=== PATIENT | female | born 1960 | race African-American/Black ===

== ENCOUNTER 2023-02-27 21:16 | Inpatient (IN) | payer MEDICARE, SELFPAY ==
[2023-02-27 21:36] VITALS: BP 122/60; PULSE 74; PULSE 75; RESP 16; O2SAT 100; O2SAT 98; BMI 22.5
[2023-02-27 21:40] VITALS: BP 126/71
[2023-02-27 22:00] VITALS: PULSE 80; O2SAT 100
--- NOTE | 2023-02-27 22:06 | ED.ALCOHOL ---
HPI - Alcohol General Chief Complaint: Psychiatric Symptoms Stated Complaint: ETOH USE,SYNCOPE PER EMS Time Seen by Provider: 02/27/23 22:05 Source: patient, family and RN notes reviewed Mode of arrival: EMS Limitations: no limitations History of Present Illness HPI narrative: Patient history of bipolar depression and schizophrenia been more depressed lately been drinking heavy specially for last 2 days not eating much prior to arrival patient was feeling weak and while sitting stopped responding and was drooling from her angle of the mouth, blood pressure checked 3 times at home was 78/60, 500 cc fluid was given by EMS and blood pressure improved to 126/71 patient does not remember passing out episode no seizure no head injury no chest pain no palpitation patient denies any suicidal ideation no overdose on medication Related Data Allergies Allergy/AdvReac Type Severity Reaction Status Date / Time No Known Allergies Allergy Verified 02/27/23 21:41 Review of Systems Review of Systems: Yes all other systems are reviewed and are negative PMFSH Past Medical History Medical History (Updated 02/28/23 @ 03:12 by Soto Moe MD) Schizophrenia Bipolar 1 disorder Depression Social History Social History Alcohol intake: current Alcohol intake frequency: 3 or more drinks per day Alcohol type: hard liquor Smoked in Last 30 Days: No Use of substances other than those prescribed or required for medical reasons: No Advance Directives: No Advance Directives Information Provided: No Physical Exam ED Vital Signs: Vital Signs - 24 hr 02/27/23 21:36 02/27/23 21:40 02/27/23 22:00 Temperature Pulse Rate 74 Respiratory Rate 16 Blood Pressure 126/71 Pulse Oximetry 100 100 Oxygen Delivery Method Room Air Room Air 02/28/23 01:32 02/28/23 06:12 Temperature 98.8 F 98.9 F Pulse Rate 67 76 Respiratory Rate 19 16 Blood Pressure 117/75 140/90 H Pulse Oximetry 97 97 Oxygen Delivery Method Room Air Room Air BMI result Body Mass Index 22.5 Appearance: Alert. Oriented X3. No acute distress. Eyes: PERRLA, No Nystagmus ENT: Pharynx normal. Oral Mucosa moist Neck: Normal inspection. Neck supple. CVS: Normal heart rate and rhythm. Pulses normal. Respiratory: No respiratory distress. Equal air entry bilateral, no wheezing/rales/rhonchi Abdomen: Soft and nontender. Bowel sounds are present, no mass palpable, no CVA tenderness Skin: Skin warm and dry. Normal skin color. Normal skin turgor. Extremities: No lower extremity edema. No calf tenderness Neuro: Oriented X 3. No motor deficit. No sensory deficit.No cerebellar signs , cranial nerves II-XII intact Medical Decision Making Medical Decision Making MDM Narrative: Patient depression with alcohol use with near-syncope episode a transient hypertension no EKG changes no delta troponin change no chest pain on arrival patient feels increasingly depressed moved from [place] to [place] does not have any provider here does not take any medication for depression at this time Lab Data [facility] Lab Attestation statement: I reviewed the patient's lab results. 02/27/23 22:47 02/27/23 22:47 Labs: Lab Results 02/27/23 02/28/23 02/28/23 Range/Units 22:47 01:36 02:11 WBC 7.0 (4.8-10.8) X10*3/uL RBC 4.51 (4.20-5.50) X10*6/uL Hgb 13.3 (12.0-16.0) g/dl Hct 39.9 (37.0-47.0) % MCV 88.5 (80.0-98.0) fL MCH 29.5 (27.0-33.0) pg MCHC 33.3 (31.0-35.0) g/dl RDW 15.8 (11.0-16.0) % Plt Count 168 (160-400) X10*3/uL MPV 10.3 (9.4-12.3) fL Immature Gran % (Auto) 0.1 (0.0-0.4) % Neut % (Auto) 73.4 H (45-73) % Lymph % (Auto) 20.7 (20-40) % Ramsey % (Auto) 5.4 (2-11) % Eos % (Auto) 0.0 (0-4) % Baso % (Auto) 0.4 (0-2) % Lymph # (Auto) 1.5 (1.2-4.9) X10*3/uL Ramsey # (Auto) 0.4 (0.1-1.2) X10*3/uL Eos # (Auto) 0.0 (0.0-0.4) X10*3/uL Baso # (Auto) 0.0 (0.0-0.2) X10*3/uL Abs Immat Gran (auto) 0.01 (0.00-0.03) X10*3/uL Absolute Neuts (auto) 5.2 (2.0-8.3) x10*3/uL Absolute Nucleated RBC 0.000 (0.0-0.012) X10*3/uL Nucleated RBC % (auto) 0.0 (0.0-0.2) /100WBC PT 11.5 (11.1-13.3) SEC INR 0.9 (0.9-1.1) Sodium 140 (135-145) mmol/L Potassium 3.3 (3.3-5.1) mmol/L Chloride 104 (96-108) mmol/L Carbon Dioxide 21 L (22-29) mmol/L Anion Gap 18 (12-20) BUN 22 H (9-16) mg/dL Creatinine 2.07 H (0.5-1.4) mg/dL Estim Creat Clear Calc 31.0 Estimated GFR 24 Random Glucose 98 (60-115) mg/dL Calcium 8.8 (8.4-10.2) mg/dL Magnesium 2.1 (1.6-2.6) mg/dL Total Bilirubin 0.3 (0.0-1.0) mg/dL AST 36 H (5-31) U/L ALT 15 (0-31) U/L Alkaline Phosphatase 74 (39-117) U/L Troponin I High Sens 3.4 < 2.7 (<3.5-17.0) ng/L Total Protein 8.5 H (6.5-8.0) g/dL Albumin 4.0 (3.5-5.0) g/dL Urine Opiates Screen Not Detected (Not Detect) Urine Fentanyl Screen Not Detected (Not Detect) Ur Barbiturates Screen Not Detected (Not Detect) Ur Phencyclidine Scrn Not Detected (Not Detect) Ur Amphetamines Screen Not Detected (Not Detect) U Benzodiazepines Scrn Not Detected (Not Detect) Urine Cocaine Screen Not Detected (Not Detect) U Marijuana (THC) Screen POSITIVE H (Not Detect) Ethyl Alcohol 241 mg/dL Independent Interpretation I performed an independent interpretation of an: EKG Interpretation: Normal sinus rhythm heart rate 66 beats per min poor progression of R wave in anterior lead no acute ST T wave changes no acute ischemia Medications Administered Discontinued Medications Generic Name Dose Route Start Last Admin Trade Name Freq PRN Reason Stop Dose Admin Sodium Chloride 1,000 mls @ 999 mls/hr 02/27/23 22:31 02/28/23 01:03 Ns IV 02/27/23 23:31 Infused .Q1H1M ONE Infusion Lorazepam 2 mg 02/28/23 06:13 02/28/23 06:30 Lorazepam 1 Mg Tablet PO 2 mg RQ4H WHILE AWAKE PRN Administration Alcohol Withdrawal Discharge Plan Discharge Clinical Impression: Vasovagal syncope, Alcohol dependence, Depression Patient Disposition: Still a Patient Interventions: Twiggs-Suicide Risk Severity Scale Last Done: 02/28/23 06:36
--- NOTE | 2023-02-27 22:36 | ECG_ITS ---
Test Reason : SYNCOPE Blood Pressure : / mmHG Vent. Rate : 066 BPM Atrial Rate : 066 BPM P-R Int : 202 ms QRS Dur : 096 ms QT Int : 480 ms P-R-T Axes : 118 213 202 degrees QTc Int : 503 ms Suspect limb lead reversal, interpretation assumes no reversal Normal sinus rhythm Anterolateral infarct , age undetermined T wave abnormality, consider inferior ischemia Abnormal ECG No previous ECGs available Repeat EKG with proper arm lead positioning Referred By: Soto Moe Electronically Signed By:RICHY HIGGINS MD
--- NOTE | 2023-02-27 22:36 | PC.NURSE ---
pt refusing changing into hospital gown.
[2023-02-27 22:53] LABS: MANUAL DIFF FLAG NO
[2023-02-27 22:55] LABS: Basophils Percent Auto 0.4 % (0-2); Hematocrit 39.9 % (37.0-47.0); Hemoglobin 13.3 g/dl (12.0-16.0); Imm Gran Abs Auto 0.01 X10*3/uL (0.00-0.03); Imm Gran Pct Auto 0.1 % (0.0-0.4); Lymphocytes Absolute Auto 1.5 X10*3/uL (1.2-4.9); Lymphocytes Percent Auto 20.7 % (20-40); Mean Corpuscular HGB Conc 33.3 g/dl (31.0-35.0); Mean Corpuscular Hemoglobin 29.5 pg (27.0-33.0); Mean Corpuscular Volume 88.5 fL (80.0-98.0); Mean Platelet Volume 10.3 fL (9.4-12.3); Monocytes Absolute Auto 0.4 X10*3/uL (0.1-1.2); Monocytes Percent Auto 5.4 % (2-11); Neutrophils Absolute Auto 5.2 x10*3/uL (2.0-8.3); Neutrophils Percent Auto 73.4 % (45-73); Platelet Count 168 X10*3/uL (160-400); Red Blood Count 4.51 X10*6/uL (4.20-5.50); Red Cell Distribution Width 15.8 % (11.0-16.0)
[2023-02-27] MEDS: 0.9 % Sodium Chloride 1,000 ML 999 ML IV (23:01)
--- NOTE | 2023-02-27 23:01 | PC.NURSE ---
pt now calm/cooperative. in agreement with plan of care. pt changed into hospital gown. labs obtained. nsr on monitor. ivf infusing. pt speaking full clear centences; axox3. awaiting lab results. call jacobs within reach..
[2023-02-27 23:03] LABS: INTERNATIONAL NORM RATIO 0.9 (0.9-1.1); Prothrombin Time 11.5 SEC (11.1-13.3)
[2023-02-27 23:06] LABS: Ethanol 241 mg/dL
[2023-02-27 23:09] LABS: Alanine Aminotransferase 15 U/L (0-31); Alkaline Phosphatase 74 U/L (39-117); Anion Gap 18 (12-20); Aspartate Amino Transferase 36 U/L (5-31); Bilirubin Total 0.3 mg/dL (0.0-1.0); Blood Urea Nitrogen 22 mg/dL (9-16); Calcium 8.8 mg/dL (8.4-10.2); Carbon Dioxide 21 mmol/L (22-29); Chloride 104 mmol/L (96-108); Estimated Glomerular Filt Rate 24; Glucose Random 98 mg/dL (60-115); Magnesium 2.1 mg/dL (1.6-2.6); Potassium 3.3 mmol/L (3.3-5.1); Sodium 140 mmol/L (135-145); Total Protein 8.5 g/dL (6.5-8.0)
[2023-02-27 23:16] LABS: Troponin-I High Sensitivity 3.4 ng/L (<3.5-17.0)
--- NOTE | 2023-02-28 | ECG_ITS ---
Test Reason : REPEAT EKG Blood Pressure : / mmHG Vent. Rate : 059 BPM Atrial Rate : 059 BPM P-R Int : 172 ms QRS Dur : 082 ms QT Int : 450 ms P-R-T Axes : 012 -35 011 degrees QTc Int : 445 ms Sinus bradycardia Left axis deviation Anteroseptal infarct (cited on or before 27-FEB-2023) Abnormal ECG When compared with ECG of 27-FEB-2023 23:07, Serial changes of Anteroseptal infarct Present Referred By: Soto Moe Electronically Signed By:RICHY HIGGINS MD
[2023-02-28 01:32] VITALS: BP 117/75; PULSE 67; RESP 19; TEMP 37.1; O2SAT 97
--- NOTE | 2023-02-28 01:45 | PC.NURSE ---
repeat trop drawn and sent to lab. per pts conversation with Dr. Moe; care team consult ordered. awaiting medical clearance to private branch exchange repairer pt and move to pod.
[2023-02-28 02:23] LABS: Amphetamine Screen Urine Not Detected (Not Detect); Barbiturates, Urine Not Detected (Not Detect); Benzodiazepines Screen Urine Not Detected (Not Detect); Cannabinoid Screen Urine POSITIVE (Not Detect); Cocaine Screen Urine Not Detected (Not Detect); Fentanyl, urine Not Detected (Not Detect); Opiate Screen Urine Not Detected (Not Detect); Phencyclidine Screen Urine Not Detected (Not Detect)
[2023-02-28 03:05] LABS: Troponin-I High Sensitivity < 2.7 ng/L (<3.5-17.0)
--- NOTE | 2023-02-28 03:56 | MHC.EDTECH ---
PT belongings locked in POD Locker #3
--- NOTE | 2023-02-28 03:59 | PC.NURSE ---
pt changed to pod gown/clothes. belongings secured in locker. report given to pod rn. awaiting transport to pod.
[2023-02-28 06:12] VITALS: BP 140/90; PULSE 76; RESP 16; TEMP 37.2; O2SAT 97
[2023-02-28] MEDS: LORazepam 1 MG TABLET 2 MG PO ×3 (06:30→23:40)
[2023-02-28 09:15] LABS: Anion Gap 12 (12-20); Blood Urea Nitrogen 24 mg/dL (9-16); Calcium 8.5 mg/dL (8.4-10.2); Carbon Dioxide 24 mmol/L (22-29); Chloride 108 mmol/L (96-108); Estimated Glomerular Filt Rate 37; Glucose Random 101 mg/dL (60-115); Sodium 140 mmol/L (135-145)
--- NOTE | 2023-02-28 12:24 | PC.NURSE ---
CIWA of 5. only symptom of alcohol use is anxiety at this time. Ativan 2mg given, she had good effect earlier.
[2023-02-28 16:44] LABS: COVID-19 Test Negative (Negative); IDNOW Serial# 6674DD1D
--- NOTE | 2023-02-28 17:29 | PC.NURSE ---
Nurse to nurse report given to
--- NOTE | 2023-02-28 18:35 | PC.NURSE ---
Asuncion Loera called this commercial real estate underwriter informing that Freddie Damon from [facility] wanted a repeat EKG due to her previous EKG. order done
--- NOTE | 2023-02-28 19:08 | PC.NURSE ---
patient appears to remain at rest at present in room, resting comfortably patient appears in no distress.
[2023-02-28 23:35] VITALS: BP 190/117; PULSE 83; RESP 18; TEMP 36.6; O2SAT 95
[2023-02-28 23:36] VITALS: BP 181/107; RESP 18
[2023-03-01] VITALS (8 sets, daily range): BP systolic 121–198; BP diastolic 65–108; PULSE 63–72; RESP 15–18; TEMP 36.4–36.7; O2SAT 97–99
--- NOTE | 2023-03-01 01:00 | PC.NURSE ---
Addendum entered by Zayda Almaguer RN 03/01/23 06:43: Pt rechecked after taking Clonidine 0.1mg after one hour and her bp was 162/90. Original Note: Pt arrived on unit from ED POD and vitals were taken at 2335, BP was elevated at 190/117, retook on opposite arm and reading was 181/107. house calls nurse JS notified and ordered Ativan 2mg (as pt on CIWA scale also) and recheck bp in one hour. Upon rechecking bp was 193/104. Took manual recheck and it was 182/100. house calls nurse JS notified and ordered Clonidine 0.1 q2h prn sbp >160. In one hour if recheck was still elevated, directed to contact hospitalist for consult. Will continue to monitor and amend.
[2023-03-01] MEDS: cloNIDine HCL 0.1 MG TABLET PO ×2 (01:21→07:54)
[2023-03-01] MEDS: LORazepam 1 MG TABLET PO ×2 (03:05→21:19)
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
[2023-03-01 07:56] LABS: Estimated Average Glucose 97 mg/dL
[2023-03-01] MEDS: LORazepam 1 MG TABLET 2 MG PO (07:58)
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
[2023-03-01 08:24] LABS: Cholesterol 175 mg/dL (<200); HDL Cholesterol 62 mg/dL (>40); LDL Cholesterol Calculated 81 mg/dL (<100); Triglycerides 163 mg/dL (<150)
[2023-03-01 08:38] LABS: Folate 8.8 ng/mL (> or = 4.0); Free T4 (Free Thyroxine) 0.71 ng/dL (0.71-1.85); Thyroid Stimulating Hormone 3.95 uIU/mL (0.32-4.0)
--- NOTE | 2023-03-01 11:34 | P.CONHOSP_ITS ---
History of Present Illness Data of Consult Service Date: 03/01/23 Primary Care Provider: Unknown Physician HPI Reason for consult: Elevated BP Patient is a 62-year-old female with a PMH significant for HTN, alcohol use disorder, depression, bipolar disorder, and schizophrenia who was admitted to and very psych unit increased depression and substance use. Hospitalist consult for elevated blood pressure. Patient's BP at home was initially soft at 78/60, she was given 500 mL IVF by EMS prior to arrival at the ED. BP in the hospital has been mostly elevated since yesterday, as high as 198/108 this morning. [facility] Medical History (Updated 02/28/23 @ 03:12 by Soto Moe MD) Schizophrenia Bipolar 1 disorder Depression Social History Household Members: Other Household Members Other:: Daughter in law and her boyfriend Housing: Apartment Do you presently have visiting nurse or other home services: No Alcohol intake: current Alcohol intake frequency: 3 or more drinks per day Alcohol type: hard liquor Patient Tobacco Use Status: Former Tobacco user Tobacco use type: Cigarette Smoked in Last 30 Days: No Patient Interested in Nicotine Replacement: No Patient Given Instructions on How to Stop Smoking: Yes Date Education Initiated: 02/28/23 Second Hand Smoke Exposure: No Use of substances other than those prescribed or required for medical reasons: Yes Substance Use Type: Marijuana Substance Use Frequency: Occasionally Last Used Substance: Just Prior to Admission Currently Displaying Signs/Symptoms of Drug Intoxication Withdrawal: No Any prior treatment program specific to substance use: No Have you been hit, kicked, punched, or otherwise hurt by someone within the past year? If so, by whom?: No Do you feel safe in your current relationship?: No Current Relationship Is there a partner from a previous relationship who is making you feel unsafe now?: No Are you made to feel afraid or neglected: No Advance Directives: No Advance Directives Information Provided: No Healthcare Proxy: No Guardian: No Do you have thoughts of harming others: None Do you have a plan to hurt others: No Plan Recently lost weight without trying: No Nutrition Risks: No Nutritional Risk Patient : No : No Poor oral hygiene: No Meds Allergies Allergy/AdvReac Type Severity Reaction Status Date / Time No Known Allergies Allergy Verified 02/27/23 21:41 Active Medications: Current Medications Acetaminophen (Acetaminophen 325 Mg Tablet) 650 mg PO Q6H PRN PRN Reason: Headache/Pain Mild Scale (1-3) Al Hydroxide/Mg Hydroxide (Magnesium Hydrox/Alum Hydrox 30 Ml Oral.Susp) 30 ml PO Q6H PRN PRN Reason: Heartburn/Nausea Clonidine HCl (Clonidine Hcl 0.1 Mg Tablet) 0.1 mg PO Q2H PRN; Protocol PRN Reason: SBP > 160 Last Admin: 03/01/23 07:54 Dose: 0.1 mg Hydroxyzine HCl (Hydroxyzine Hcl 25 Mg Tablet) 25 mg PO Q6H PRN PRN Reason: Anxiety Lorazepam (Lorazepam 1 Mg Tablet) 1 mg PO Q2H PRN PRN Reason: CIWA 8-11 Last Admin: 03/01/23 03:05 Dose: 1 mg Lorazepam (Lorazepam 1 Mg Tablet) 2 mg PO Q2H PRN PRN Reason: CIWA 12-15 Last Admin: 03/01/23 07:58 Dose: 2 mg Lorazepam (Lorazepam 1 Mg Tablet) 3 mg PO Q2H PRN PRN Reason: CIWA > 15; and call Magnesium Hydroxide (Milk Of Magnesia 30 Ml Oral.Susp) 30 ml PO DAILY PRN PRN Reason: Constipation Nicotine Polacrilex (Nicotine Polacrilex 2 Mg Gum) 4 mg BUCCAL Q2H PRN PRN Reason: Nicotine Cravings Ondansetron HCl (Ondansetron Odt 4 Mg Tab.Rapdis) 4 mg TRANSLINGU Q6H PRN PRN Reason: Nausea Trazodone HCl (Trazodone Hcl 50 Mg Tablet) 50 mg PO BEDTIME MRX1 PRN PRN Reason: Insomnia Home Medications Medication Instructions Recorded Confirmed Last Taken Type fluoxetine 20 mg PO DAILY 03/01/23 03/01/23 Unknown History lisinopril 20 mg tablet 20 mg PO BID 03/01/23 03/01/23 Unknown History trazodone 100 mg tablet 100 mg PO BEDTIME 03/01/23 03/01/23 Unknown History Physical Exam 2 Vital Signs and Narrative: Vital Signs: Last Vital Signs Temp 97.6 F 03/01/23 07:40 Pulse 69 03/01/23 09:56 Resp 16 03/01/23 07:40 BP 144/94 H 03/01/23 09:56 Pulse Ox 97 03/01/23 07:40 O2 Del Method Room Air 03/01/23 07:40 BMI result Body Mass Index 22.5 Results Labs 02/27/23 22:47 02/28/23 08:53 Labs: Laboratory Results - last 24 hr 02/28/23 03/01/23 16:25 07:09 Estimat Average Glucose 97 Hemoglobin A1c % 5.0 Triglycerides 163 H Cholesterol 175 LDL Cholesterol, Calc 81 HDL Cholesterol 62 Folate 8.8 TSH 3.95 Free T4 0.71 COVID-19 ([facility]) Negative COVID-19 Clin Com See Note
--- NOTE | 2023-03-01 13:03 | P.EN_ITS ---
Event Note Date of Service: 03/01/23 Event Note: Patient is a 62-year-old female with a PMH significant for HTN, alcohol use disorder, depression, bipolar disorder, and schizophrenia who was admitted to and very psych unit increased depression and substance use. Hospitalist consult for elevated blood pressure. Patient's BP at home was initially soft at 78/60, she was given 500 mL IVF by EMS prior to arrival at the ED. BP in the hospital has been mostly elevated since yesterday, as high as 198/108 this morning. Patient's blood pressure has since come down with a reading of 144/94 at 10:00 today and is now normotensive with a BP of 121/65 at 11:46. Patient has also been receiving Ativan 2 mg q2hr p.r.n. for acute alcohol withdrawal. Patient recently moved from [place] to [place] and has yet to establish medical care in the area. Apparently carries a diagnosis of HTN it is prescribed lisinopril 20 mg p.o. b.i.d.. However, spoke to pharmacy and they noted pt had 2 prescriptions dated 01/25 and 02/08 at a [facility] in [facility], but there are no records of patient ever filling those prescriptions. Elevated BP likely secondary to acute alcohol withdrawal. Continue Ativan withdrawal protocol. Given that patient's BP is now normotensive and there are no records of her ever filling lisinopril prescriptions, will hold off on antihypertensives at the moment. Will continue to monitor BP and start her on a low-dose of lisinopril if warranted. Time Spent With Patient Time: Total time managing care of this patient today ____ minutes.
[2023-03-01] MEDS: FLUoxetine HCl 20 MG CAPSULE PO (15:44)
[2023-03-01] MEDS: Loratadine 10 MG TABLET PO (21:20)
[2023-03-01] MEDS: traZODone HCL 100 MG TABLET PO (21:20)
[2023-03-02 07:45] VITALS: BP 160/98; PULSE 71; RESP 16; TEMP 36.6; O2SAT 97
[2023-03-02] MEDS: FLUoxetine HCl 20 MG CAPSULE 40 MG PO (08:22)
[2023-03-02] MEDS: Loratadine 10 MG TABLET PO (08:23)
[2023-03-02 09:17] LABS: HIV AB/AG Reactive (Nonreactive)
[2023-03-02 12:03] VITALS: BP 141/82; PULSE 70
[2023-03-02] MEDS: lisinopriL 10 MG TABLET PO (12:05)
[2023-03-02] MEDS: LORazepam 1 MG TABLET PO ×3 (14:18→20:47)
--- NOTE | 2023-03-02 14:19 | P.PNPSI_ITS ---
Subjective Subjective Date of Service: 03/02/23 Reason For Visit: si/ alcohol Interim History: calm, cooperative. discussed ativan taper and adding lisinopril back in for BP. no complaints or requests. happy to hear about discharge planned for later this week. per staff, not attending groups. CIWA 13, 3, 3 yesterday. CIWA 9 overnight. pleasant, withdrawn. some diarrhea. CIWA 3 today. slept about 8 hours. Mental Status Exam Mental Status Exam Narrative: calm, cooperative. no PMA/PMR. speech soft, somewhat sparse and slowed. decreased prosody, nml latency. thoughts linear and logical. affect constricted, normo-intense, non-labile. mood not assessed. no SI/SIBI/HI/AVH expressed. does endorse some illusions. Diagnostics Vital Signs (24Hr): Vital Signs - 24 hr 03/01/23 18:00 03/01/23 19:50 03/02/23 07:45 Temperature 97.9 F 97.8 F Pulse Rate 63 70 71 Respiratory Rate 15 16 Blood Pressure 141/76 H 185/100 H 160/98 H Pulse Oximetry 99 97 Oxygen Delivery Method Room Air Room Air 03/02/23 12:03 Temperature Pulse Rate 70 Respiratory Rate Blood Pressure 141/82 H Pulse Oximetry Oxygen Delivery Method BMI result Body Mass Index 22.5 Labs 02/27/23 22:47 02/28/23 08:53 Labs: Laboratory Results - last 48 hr 02/28/23 03/01/23 03/01/23 16:25 07:09 15:13 Estimat Average Glucose 97 Hemoglobin A1c % 5.0 Triglycerides 163 H Cholesterol 175 LDL Cholesterol, Calc 81 HDL Cholesterol 62 Folate 8.8 TSH 3.95 Free T4 0.71 COVID-19 ([facility]) Negative COVID-19 Clin Com See Note HIV 1&2 Ab/P24 Ag 4thGn Reactive H Medications Medications Current Medications Acetaminophen (Acetaminophen 325 Mg Tablet) 650 mg PO Q6H PRN PRN Reason: Headache/Pain Mild Scale (1-3) Al Hydroxide/Mg Hydroxide (Magnesium Hydrox/Alum Hydrox 30 Ml Oral.Susp) 30 ml PO Q6H PRN PRN Reason: Heartburn/Nausea Clonidine HCl (Clonidine Hcl 0.1 Mg Tablet) 0.1 mg PO Q2H PRN; Protocol PRN Reason: SBP > 160 Last Admin: 03/01/23 07:54 Dose: 0.1 mg Fluoxetine HCl (Fluoxetine Hcl 20 Mg Capsule) 40 mg PO DAILY [facility] Last Admin: 03/02/23 08:22 Dose: 40 mg Hydroxyzine HCl (Hydroxyzine Hcl 25 Mg Tablet) 25 mg PO Q6H PRN PRN Reason: Anxiety Lisinopril (Lisinopril 10 Mg Tablet) 10 mg PO DAILY [facility]; Protocol Last Admin: 03/02/23 12:05 Dose: 10 mg Loratadine (Loratadine 10 Mg Tablet) 10 mg PO DAILY [facility] Last Admin: 03/02/23 08:23 Dose: 10 mg Lorazepam (Lorazepam 1 Mg Tablet) 1 mg PO TID [facility] Stop: 03/02/23 21:01 Last Admin: 03/02/23 14:18 Dose: 1 mg Lorazepam (Lorazepam 0.5 Mg Tablet) 0.5 mg PO QID [facility] Stop: 03/03/23 21:01 Lorazepam (Lorazepam 0.5 Mg Tablet) 0.5 mg PO BID [facility] Stop: 03/05/23 09:01 Magnesium Hydroxide (Milk Of Magnesia 30 Ml Oral.Susp) 30 ml PO DAILY PRN PRN Reason: Constipation Nicotine Polacrilex (Nicotine Polacrilex 2 Mg Gum) 4 mg BUCCAL Q2H PRN PRN Reason: Nicotine Cravings Ondansetron HCl (Ondansetron Odt 4 Mg Tab.Rapdis) 4 mg TRANSLINGU Q6H PRN PRN Reason: Nausea Trazodone HCl (Trazodone Hcl 50 Mg Tablet) 50 mg PO BEDTIME MRX1 PRN PRN Reason: Insomnia Trazodone HCl (Trazodone Hcl 100 Mg Tablet) 100 mg PO BEDTIME [facility] Last Admin: 03/01/23 21:20 Dose: 100 mg Allergies Allergies Allergy/AdvReac Type Severity Reaction Status Date / Time No Known Allergies Allergy Verified 02/27/23 21:41 Assessment & Plan Assessment & Plan (1) Alcohol dependence: Status: Acute Code(s): F10.20 - Alcohol dependence, uncomplicated (2) Depression: Status: Acute Code(s): F32.A - Depression, unspecified Plan 1) HTN - per fabrice, observe for now and restart lisinopril 5 if indicated moving forward. recent HTN likely related to alcohol withdrawal. treat accordingly. 03/02 lisinopril 10 restarted due to continued elevated BP. 2) renal impairment - trend, keep in mind in making Rx decisions 3) mood - restarted prozac and trazodone 03/01 -03/02. no information presented supportive of bipolar or psychotic Dx. eval for PTSD. 4) HIV - screen positive 03/01. pt reports having been told in the 90s she was HIV +, never treated. ID consult placed for eval/Tx. Reason for continued inpatient stay Substantial Risk for: inability to function and rapid decompensation Time Spent With Patient Time: Total time managing care of this patient today _25___ minutes.
[2023-03-02 19:50] VITALS: BP 165/88; PULSE 76; RESP 16; TEMP 36.3; O2SAT 97
[2023-03-02] MEDS: traZODone HCL 100 MG TABLET PO (20:47)
[2023-03-02 22:59] LABS: COVID-19 Test Negative (Negative); IDNOW Serial# 08D9AD1C
[2023-03-03 08:58] VITALS: BP 145/90; PULSE 75; RESP 16; TEMP 36.6; O2SAT 96
[2023-03-03] MEDS: FLUoxetine HCl 20 MG CAPSULE 40 MG PO (09:00)
[2023-03-03] MEDS: Loratadine 10 MG TABLET PO (09:01)
[2023-03-03] MEDS: lisinopriL 10 MG TABLET PO ×2 (09:01→21:15)
[2023-03-03] MEDS: LORazepam 0.5 MG TABLET PO ×4 (09:01→21:15)
[2023-03-03] MEDS: Acetaminophen 325 MG TABLET 650 MG PO (09:06)
--- NOTE | 2023-03-03 09:43 | P.PNPSI_ITS ---
Subjective Subjective Date of Service: 03/03/23 Reason For Visit: si/ alcohol Subjective Notes: Conditional Voluntary Interim History: Reviewed with . Patient reports having some depression but low anxiety ; pt stated, I feel like the meds are helping . Pt denies SI/HI/VH/AH. attending groups. Medication Compliance: Yes Attending Groups: Yes Review of Systems Constitutional: Reports as per HPI Eyes: Reports as per HPI Reports as per HPI Cardiovascular: Reports as per HPI Respiratory: Reports as per HPI Gastrointestinal: Reports as per HPI Genitourinary: Reports as per HPI Musculoskeletal: Reports as per HPI Skin/Breast: Reports as per HPI Reports as per HPI Psychiatric: Reports as per HPI Endocrine: Reports as per HPI Hematologic/Lymphatic: Reports as per HPI Allergic/Immunologic: Reports as per HPI Mental Status Exam Mental Status Exam Narrative: Pt is alert and oriented; behavior is cooperative and calm; dressed in casual attire; mood is described as some depression ; eye contact appropriate; Speech is normal rate, volume and prosody and not pressured; thought process is organized; Thought content is on tx; otherwise pertinent to relevant topics and without any delusional content, paranoid ideations or grandiosity; denies SI/HI/VH/AH. Diagnostics Vital Signs (24Hr): Vital Signs - 24 hr 03/02/23 12:03 03/02/23 19:50 03/03/23 08:58 Temperature 97.3 F 97.9 F Pulse Rate 70 76 75 Respiratory Rate 16 16 Blood Pressure 141/82 H 165/88 H 145/90 H Pulse Oximetry 97 96 Oxygen Delivery Method Room Air Room Air BMI result Body Mass Index 22.5 Labs 02/27/23 22:47 02/28/23 08:53 Labs: Laboratory Results - last 48 hr 03/01/23 03/02/23 15:13 22:03 COVID-19 ([facility]) Negative COVID-19 Clin Com See Note HIV 1&2 Ab/P24 Ag 4thGn Reactive H Medications Medications Current Medications Acetaminophen (Acetaminophen 325 Mg Tablet) 650 mg PO Q6H PRN PRN Reason: Headache/Pain Mild Scale (1-3) Last Admin: 03/03/23 09:06 Dose: 650 mg Al Hydroxide/Mg Hydroxide (Magnesium Hydrox/Alum Hydrox 30 Ml Oral.Susp) 30 ml PO Q6H PRN PRN Reason: Heartburn/Nausea Clonidine HCl (Clonidine Hcl 0.1 Mg Tablet) 0.1 mg PO Q2H PRN; Protocol PRN Reason: SBP > 160 Last Admin: 03/01/23 07:54 Dose: 0.1 mg Fluoxetine HCl (Fluoxetine Hcl 20 Mg Capsule) 40 mg PO DAILY [facility] Last Admin: 03/03/23 09:00 Dose: 40 mg Hydroxyzine HCl (Hydroxyzine Hcl 25 Mg Tablet) 25 mg PO Q6H PRN PRN Reason: Anxiety Lisinopril (Lisinopril 10 Mg Tablet) 10 mg PO DAILY [facility]; Protocol Last Admin: 03/03/23 09:01 Dose: 10 mg Loratadine (Loratadine 10 Mg Tablet) 10 mg PO DAILY [facility] Last Admin: 03/03/23 09:01 Dose: 10 mg Lorazepam (Lorazepam 0.5 Mg Tablet) 0.5 mg PO QID [facility] Stop: 03/03/23 21:01 Last Admin: 03/03/23 09:01 Dose: 0.5 mg Lorazepam (Lorazepam 0.5 Mg Tablet) 0.5 mg PO BID [facility] Stop: 03/05/23 09:01 Magnesium Hydroxide (Milk Of Magnesia 30 Ml Oral.Susp) 30 ml PO DAILY PRN PRN Reason: Constipation Nicotine Polacrilex (Nicotine Polacrilex 2 Mg Gum) 4 mg BUCCAL Q2H PRN PRN Reason: Nicotine Cravings Ondansetron HCl (Ondansetron Odt 4 Mg Tab.Rapdis) 4 mg TRANSLINGU Q6H PRN PRN Reason: Nausea Trazodone HCl (Trazodone Hcl 50 Mg Tablet) 50 mg PO BEDTIME MRX1 PRN PRN Reason: Insomnia Trazodone HCl (Trazodone Hcl 100 Mg Tablet) 100 mg PO BEDTIME [facility] Last Admin: 03/02/23 20:47 Dose: 100 mg Allergies Allergies Allergy/AdvReac Type Severity Reaction Status Date / Time No Known Allergies Allergy Verified 02/27/23 21:41 Assessment & Plan Assessment & Plan (1) Alcohol dependence: Status: Acute Code(s): F10.20 - Alcohol dependence, uncomplicated (2) Depression: Status: Acute Code(s): F32.A - Depression, unspecified Plan 1) HTN - per fabrice, observe for now and restart lisinopril 5 if indicated moving forward. recent HTN likely related to alcohol withdrawal. treat accordingly. 03/02 lisinopril 10 restarted due to continued elevated BP. 2) renal impairment - trend, keep in mind in making Rx decisions 3) mood - restarted prozac and trazodone 03/01 -03/02. no information presented supportive of bipolar or psychotic Dx. eval for PTSD. 4) HIV - screen positive 03/01. pt reports having been told in the 90s she was HIV +, never treated. ID consult placed for eval/Tx. 03/03: Patient reports having some depression but low anxiety ; pt stated, I feel like the meds are helping . Pt denies SI/HI/VH/AH. attending groups. Continue current tx plan. Patient educated on: diagnosis, medication risk/benefits and therapeutic strategies Informed Consent: understands Reason for continued inpatient stay Substantial Risk for: med/psych decompensation Time Spent With Patient Time: Total time managing care of this patient today _20___ minutes.
[2023-03-03 14:24] LABS: Vitamin B12 364 pg/mL (200-900)
[2023-03-03 21:00] VITALS: BP 158/84; PULSE 69; RESP 16; TEMP 36.5; O2SAT 96
[2023-03-03] MEDS: traZODone HCL 100 MG TABLET PO (21:15)
--- NOTE | 2023-03-03 23:23 | P.CNID_ITS ---
History of Present Illness Data of Consult Service Date: 03/03/23 Requesting physician: Juan Diego Damon Primary Care Provider: Unknown Physician HPI Reason for consult: HIV screening positive She presents to hospital with excess alcohol intake as well as inability to care for self because of alcohol use and depressed mood. She reports being diagnosed with HIV in and taking medication for two months in [place]. She thinks it may have been [facility] but [phone] and they have record of patient taking Trazodone only and no HIV medication on record in their system. I called [facility] and they have no record either and there is no record of her in [facility] or [facility] system . Pt reports no HIV related illnesses and doesnt know CD4 count or viral load. She reports distant syphilis history. She says she drinks Rinku Josr Zavala Kirstie 80 proof catherine neat as drink of choice and doesnt quantify but says drinks daily. She says she quit drugs and cigarettes and doesnt elaborate further. She intends to live in [place] now and has moved from [place]. Her screening HIV test is positive here. Review of Systems 2 Review of Systems: Yes all other systems are reviewed and are negative PENDING SALE TO [facility] Past Medical History Medical History (Updated 03/03/23 @ 23:42 by Tequila Toledo MD) HIV antibody positive Schizophrenia Bipolar 1 disorder Depression Family History Family history: reviewed and not pertinent Social History Social History Household Members: Other Household Members Other:: Daughter in law and her boyfriend Housing: Apartment Do you presently have visiting nurse or other home services: No Alcohol intake: current Alcohol intake frequency: 3 or more drinks per day Alcohol type: hard liquor Patient Tobacco Use Status: Former Tobacco user Tobacco use type: Cigarette Smoked in Last 30 Days: No Patient Interested in Nicotine Replacement: No Patient Given Instructions on How to Stop Smoking: Yes Date Education Initiated: 02/28/23 Second Hand Smoke Exposure: No Use of substances other than those prescribed or required for medical reasons: Yes Substance Use Type: Marijuana Substance Use Frequency: Occasionally Last Used Substance: Just Prior to Admission Currently Displaying Signs/Symptoms of Drug Intoxication Withdrawal: No Any prior treatment program specific to substance use: No Have you been hit, kicked, punched, or otherwise hurt by someone within the past year? If so, by whom?: No Do you feel safe in your current relationship?: No Current Relationship Is there a partner from a previous relationship who is making you feel unsafe now?: No Are you made to feel afraid or neglected: No Advance Directives: No Advance Directives Information Provided: No Healthcare Proxy: No Guardian: No Do you have thoughts of harming others: None Do you have a plan to hurt others: No Plan Recently lost weight without trying: No Nutrition Risks: No Nutritional Risk Patient : No : No Poor oral hygiene: No service: No Sexual orientation: Straight/Heterosexual Meds Allergies Allergy/AdvReac Type Severity Reaction Status Date / Time No Known Allergies Allergy Verified 02/27/23 21:41 Active Medications: Current Medications Acetaminophen (Acetaminophen 325 Mg Tablet) 650 mg PO Q6H PRN PRN Reason: Headache/Pain Mild Scale (1-3) Last Admin: 03/03/23 09:06 Dose: 650 mg Al Hydroxide/Mg Hydroxide (Magnesium Hydrox/Alum Hydrox 30 Ml Oral.Susp) 30 ml PO Q6H PRN PRN Reason: Heartburn/Nausea Clonidine HCl (Clonidine Hcl 0.1 Mg Tablet) 0.1 mg PO Q2H PRN; Protocol PRN Reason: SBP > 160 Last Admin: 03/01/23 07:54 Dose: 0.1 mg Fluoxetine HCl (Fluoxetine Hcl 20 Mg Capsule) 40 mg PO DAILY [facility] Last Admin: 03/03/23 09:00 Dose: 40 mg Hydroxyzine HCl (Hydroxyzine Hcl 25 Mg Tablet) 25 mg PO Q6H PRN PRN Reason: Anxiety Lisinopril (Lisinopril 10 Mg Tablet) 10 mg PO BID [facility]; Protocol Last Admin: 03/03/23 21:15 Dose: 10 mg Loratadine (Loratadine 10 Mg Tablet) 10 mg PO DAILY [facility] Last Admin: 03/03/23 09:01 Dose: 10 mg Lorazepam (Lorazepam 0.5 Mg Tablet) 0.5 mg PO BID [facility] Stop: 03/05/23 09:01 Magnesium Hydroxide (Milk Of Magnesia 30 Ml Oral.Susp) 30 ml PO DAILY PRN PRN Reason: Constipation Nicotine Polacrilex (Nicotine Polacrilex 2 Mg Gum) 4 mg BUCCAL Q2H PRN PRN Reason: Nicotine Cravings Ondansetron HCl (Ondansetron Odt 4 Mg Tab.Rapdis) 4 mg TRANSLINGU Q6H PRN PRN Reason: Nausea Trazodone HCl (Trazodone Hcl 50 Mg Tablet) 50 mg PO BEDTIME MRX1 PRN PRN Reason: Insomnia Trazodone HCl (Trazodone Hcl 100 Mg Tablet) 100 mg PO BEDTIME [facility] Last Admin: 03/03/23 21:15 Dose: 100 mg Home Medications Medication Instructions Recorded Confirmed Last Taken Type fluoxetine 20 mg PO DAILY 03/01/23 03/01/23 Unknown History lisinopril 20 mg tablet 20 mg PO BID 03/01/23 03/01/23 Unknown History trazodone 100 mg tablet 100 mg PO BEDTIME 03/01/23 03/01/23 Unknown History Physical Exam 2 Vital Signs: Vital Signs: Last Vital Signs Temp 97.7 F 03/03/23 21:00 Pulse 69 03/03/23 21:00 Resp 16 03/03/23 21:00 BP 158/84 H 03/03/23 21:00 Pulse Ox 96 03/03/23 21:00 O2 Del Method Room Air 03/03/23 21:00 BMI result Body Mass Index 22.5 Const: General: cooperative HEENT: Other: geographic tongue ?dryness Head: Yes normal to inspection Face and sinus: Yes normal facial exam Mouth: Normal oral and palatal mucosa present Teeth and gingiva: dentition normal Eyes: General: appearance normal, both eyes and all related structures P upils: Equal, round and reactive pupils present Resp: Effort & Inspection: normal respiratory effort Cardio: Rate: regular rate Rhythm: regular rhythm GI: Palpation (GI): Soft to palpation and nontender : General: Yes no CVA tenderness Back/Spine/Pelvis: Back: no CVA tenderness Skin: General skin exam: no rashes or lesions noted Neuro: General: moves all extremities Cranial nerves: Yes Equal, round and reactive pupils present Extrem: General: Yes normal to inspection Psych: Appearance: grossly normal Results Labs 02/27/23 22:47 02/28/23 08:53 Assessment and Plan (1) HIV antibody positive: Status: Acute Confirmatory testing is pending. I cant find record of medications or results of HIV CD4 count or viral load from [place] (2) Depression: Status: Acute (3) Alcohol dependence: Status: Acute (4) Vasovagal syncope: Status: Acute Plan Check CD4 count and viral load. Consider resistance screening. Obtain records from [place]. She should follow with [facility] on discharge [facility] program and call Татьяна Tsai RN at [phone] to set up care per her request
[2023-03-04 07:00] VITALS: BMI 23.3
[2023-03-04 08:00] VITALS: BP 158/82; PULSE 65; RESP 18; TEMP 36.6; O2SAT 97
[2023-03-04] MEDS: FLUoxetine HCl 20 MG CAPSULE 40 MG PO (08:23)
[2023-03-04] MEDS: lisinopriL 10 MG TABLET PO ×2 (08:24→22:10)
[2023-03-04] MEDS: Loratadine 10 MG TABLET PO (08:24)
[2023-03-04] MEDS: LORazepam 0.5 MG TABLET PO ×2 (08:24→22:10)
--- NOTE | 2023-03-04 09:22 | P.PNPSI_ITS ---
Subjective Subjective Date of Service: 03/04/23 Reason For Visit: si/ alcohol Subjective Notes: Conditional Voluntary Interim History: Reviewed with . Guarded. Pt stated, my depression is down. I'm always concerned about something. I'm worried about how long I will be here . Pt denies SI/HI/VH/AH. keeping to self. Medication Compliance: Yes Side effects from medications: No Review of Systems Constitutional: Reports as per HPI Eyes: Reports as per HPI Reports as per HPI Cardiovascular: Reports as per HPI Respiratory: Reports as per HPI Gastrointestinal: Reports as per HPI Genitourinary: Reports as per HPI Musculoskeletal: Reports as per HPI Skin/Breast: Reports as per HPI Reports as per HPI Psychiatric: Reports as per HPI Endocrine: Reports as per HPI Hematologic/Lymphatic: Reports as per HPI Allergic/Immunologic: Reports as per HPI Mental Status Exam Mental Status Exam Narrative: Pt is alert and oriented; behavior is cooperative and calm; dressed in casual attire; mood is described as some depression ; eye contact appropriate; Speech is normal rate, volume and prosody and not pressured; thought process is organized; Thought content is on tx; otherwise pertinent to relevant topics and without any delusional content, paranoid ideations or grandiosity; denies SI/HI/VH/AH. Diagnostics Vital Signs (24Hr): Vital Signs - 24 hr 03/03/23 21:00 03/04/23 08:00 Temperature 97.7 F 97.8 F Pulse Rate 69 65 Respiratory Rate 16 18 Blood Pressure 158/84 H 158/82 H Pulse Oximetry 96 97 Oxygen Delivery Method Room Air Room Air BMI result Body Mass Index 22.5 Labs 02/27/23 22:47 02/28/23 08:53 Labs: Laboratory Results - last 48 hr 03/01/23 03/02/23 07:09 22:03 Vitamin B12 364 COVID-19 ([facility]) Negative COVID-19 Clin Com See Note Medications Medications Current Medications Acetaminophen (Acetaminophen 325 Mg Tablet) 650 mg PO Q6H PRN PRN Reason: Headache/Pain Mild Scale (1-3) Last Admin: 03/03/23 09:06 Dose: 650 mg Al Hydroxide/Mg Hydroxide (Magnesium Hydrox/Alum Hydrox 30 Ml Oral.Susp) 30 ml PO Q6H PRN PRN Reason: Heartburn/Nausea Clonidine HCl (Clonidine Hcl 0.1 Mg Tablet) 0.1 mg PO Q2H PRN; Protocol PRN Reason: SBP > 160 Last Admin: 03/01/23 07:54 Dose: 0.1 mg Fluoxetine HCl (Fluoxetine Hcl 20 Mg Capsule) 40 mg PO DAILY [facility] Last Admin: 03/04/23 08:23 Dose: 40 mg Hydroxyzine HCl (Hydroxyzine Hcl 25 Mg Tablet) 25 mg PO Q6H PRN PRN Reason: Anxiety Lisinopril (Lisinopril 10 Mg Tablet) 10 mg PO BID [facility]; Protocol Last Admin: 03/04/23 08:24 Dose: 10 mg Loratadine (Loratadine 10 Mg Tablet) 10 mg PO DAILY [facility] Last Admin: 03/04/23 08:24 Dose: 10 mg Lorazepam (Lorazepam 0.5 Mg Tablet) 0.5 mg PO BID [facility] Stop: 03/05/23 09:01 Last Admin: 03/04/23 08:24 Dose: 0.5 mg Magnesium Hydroxide (Milk Of Magnesia 30 Ml Oral.Susp) 30 ml PO DAILY PRN PRN Reason: Constipation Nicotine Polacrilex (Nicotine Polacrilex 2 Mg Gum) 4 mg BUCCAL Q2H PRN PRN Reason: Nicotine Cravings Ondansetron HCl (Ondansetron Odt 4 Mg Tab.Rapdis) 4 mg TRANSLINGU Q6H PRN PRN Reason: Nausea Trazodone HCl (Trazodone Hcl 50 Mg Tablet) 50 mg PO BEDTIME MRX1 PRN PRN Reason: Insomnia Trazodone HCl (Trazodone Hcl 100 Mg Tablet) 100 mg PO BEDTIME [facility] Last Admin: 03/03/23 21:15 Dose: 100 mg Allergies Allergies Allergy/AdvReac Type Severity Reaction Status Date / Time No Known Allergies Allergy Verified 02/27/23 21:41 Assessment & Plan Assessment & Plan (1) Depression: Status: Acute Code(s): F32.A - Depression, unspecified (2) HIV antibody positive: Status: Acute Code(s): Z21 - Asymptomatic human immunodeficiency virus [HIV] infection status Assessment and Plan: Confirmatory testing is pending. I cant find record of medications or results of HIV CD4 count or viral load from [place] (3) Alcohol dependence: Status: Acute Code(s): F10.20 - Alcohol dependence, uncomplicated (4) Vasovagal syncope: Status: Acute Code(s): R55 - Syncope and collapse Plan 1) HTN - per fabrice, observe for now and restart lisinopril 5 if indicated moving forward. recent HTN likely related to alcohol withdrawal. treat accordingly. 03/02 lisinopril 10 restarted due to continued elevated BP. 2) renal impairment - trend, keep in mind in making Rx decisions 3) mood - restarted prozac and trazodone 03/01 -03/02. no information presented supportive of bipolar or psychotic Dx. eval for PTSD. 4) HIV - screen positive 03/01. pt reports having been told in the she was HIV +, never treated. ID consult placed for eval/Tx. 03/03: Patient reports having some depression but low anxiety ; pt stated, I feel like the meds are helping . Pt denies SI/HI/VH/AH. attending groups. Continue current tx plan. Infection disease consult: Check CD4 count and viral load. Consider resistance screening. Obtain records from [place]. She should follow with [facility] on discharge [facility] program and call Татьяна Tsai RN at [phone] to set up care per her request. 03/04: Guarded. Pt stated, my depression is down. I'm always concerned about something. I'm worried about how long I will be here . Pt denies SI/HI/VH/AH. keeping to self. Continue current tx plan. Patient educated on: diagnosis, medication risk/benefits and therapeutic strategies Informed Consent: understands Reason for continued inpatient stay Substantial Risk for: med/psych decompensation Time Spent With Patient Time: Total time managing care of this patient today _20___ minutes.
[2023-03-04 12:38] VITALS: BMI 23.3
[2023-03-04 22:02] VITALS: BP 170/94; PULSE 68; RESP 16; TEMP 36.6; O2SAT 98
[2023-03-04] MEDS: traZODone HCL 100 MG TABLET PO (22:15)
[2023-03-05 07:20] VITALS: BP 128/83; PULSE 69; RESP 16; TEMP 36.7; O2SAT 98
[2023-03-05 08:23] LABS: Syphilis Screen Nonreactive (Nonreactive)
[2023-03-05] MEDS: FLUoxetine HCl 20 MG CAPSULE 40 MG PO (08:47)
[2023-03-05] MEDS: Loratadine 10 MG TABLET PO (08:47)
[2023-03-05] MEDS: LORazepam 0.5 MG TABLET PO (08:47)
[2023-03-05] MEDS: lisinopriL 10 MG TABLET PO ×2 (08:48→20:54)
--- NOTE | 2023-03-05 09:11 | P.PNPSI_ITS ---
Subjective Subjective Date of Service: 03/05/23 Reason For Visit: si/ alcohol Subjective Notes: Conditional Voluntary Interim History: Reviewed with . Guarded. keeping to self. Pt stated, I'm feeling tired. I got a lot on my mind and about my situation. I'm not having any craving to drink . denies SI/HI/VH/AH. Medication Compliance: Yes Review of Systems Constitutional: Reports as per HPI Eyes: Reports as per HPI Reports as per HPI Cardiovascular: Reports as per HPI Respiratory: Reports as per HPI Gastrointestinal: Reports as per HPI Genitourinary: Reports as per HPI Musculoskeletal: Reports as per HPI Skin/Breast: Reports as per HPI Reports as per HPI Psychiatric: Reports as per HPI Endocrine: Reports as per HPI Hematologic/Lymphatic: Reports as per HPI Allergic/Immunologic: Reports as per HPI Mental Status Exam Mental Status Exam Narrative: Pt is alert and oriented; behavior is cooperative and calm; dressed in casual attire; mood is described as tired ; eye contact appropriate; Speech is normal rate, volume and prosody and not pressured; thought process is organized; Thought content is on tx; otherwise pertinent to relevant topics and without any delusional content, paranoid ideations or grandiosity; denies SI/HI/VH/AH. Diagnostics Vital Signs (24Hr): Vital Signs - 24 hr 03/04/23 22:02 03/05/23 07:20 Temperature 97.8 F 98.1 F Pulse Rate 68 69 Respiratory Rate 16 16 Blood Pressure 170/94 H 128/83 Pulse Oximetry 98 98 Oxygen Delivery Method Room Air Room Air BMI result Body Mass Index 23.3 Labs 02/27/23 22:47 02/28/23 08:53 Labs: Laboratory Results - last 48 hr 03/01/23 03/04/23 07:09 17:26 Vitamin B12 364 T.pallidum Ab (EIA) Nonreactive Medications Medications Current Medications Acetaminophen (Acetaminophen 325 Mg Tablet) 650 mg PO Q6H PRN PRN Reason: Headache/Pain Mild Scale (1-3) Last Admin: 03/03/23 09:06 Dose: 650 mg Al Hydroxide/Mg Hydroxide (Magnesium Hydrox/Alum Hydrox 30 Ml Oral.Susp) 30 ml PO Q6H PRN PRN Reason: Heartburn/Nausea Clonidine HCl (Clonidine Hcl 0.1 Mg Tablet) 0.1 mg PO Q2H PRN; Protocol PRN Reason: SBP > 160 Last Admin: 03/01/23 07:54 Dose: 0.1 mg Fluoxetine HCl (Fluoxetine Hcl 20 Mg Capsule) 40 mg PO DAILY [facility] Last Admin: 03/05/23 08:47 Dose: 40 mg Hydroxyzine HCl (Hydroxyzine Hcl 25 Mg Tablet) 25 mg PO Q6H PRN PRN Reason: Anxiety Lisinopril (Lisinopril 10 Mg Tablet) 10 mg PO BID [facility]; Protocol Last Admin: 03/05/23 08:48 Dose: 10 mg Loratadine (Loratadine 10 Mg Tablet) 10 mg PO DAILY [facility] Last Admin: 03/05/23 08:47 Dose: 10 mg Magnesium Hydroxide (Milk Of Magnesia 30 Ml Oral.Susp) 30 ml PO DAILY PRN PRN Reason: Constipation Nicotine Polacrilex (Nicotine Polacrilex 2 Mg Gum) 4 mg BUCCAL Q2H PRN PRN Reason: Nicotine Cravings Ondansetron HCl (Ondansetron Odt 4 Mg Tab.Rapdis) 4 mg TRANSLINGU Q6H PRN PRN Reason: Nausea Trazodone HCl (Trazodone Hcl 50 Mg Tablet) 50 mg PO BEDTIME MRX1 PRN PRN Reason: Insomnia Trazodone HCl (Trazodone Hcl 100 Mg Tablet) 100 mg PO BEDTIME [facility] Last Admin: 03/04/23 22:15 Dose: 100 mg Allergies Allergies Allergy/AdvReac Type Severity Reaction Status Date / Time No Known Allergies Allergy Verified 02/27/23 21:41 Assessment & Plan Assessment & Plan (1) Depression: Status: Acute Code(s): F32.A - Depression, unspecified (2) HIV antibody positive: Status: Acute Code(s): Z21 - Asymptomatic human immunodeficiency virus [HIV] infection status Assessment and Plan: Confirmatory testing is pending. I cant find record of medications or results of HIV CD4 count or viral load from [place] (3) Alcohol dependence: Status: Acute Code(s): F10.20 - Alcohol dependence, uncomplicated (4) Vasovagal syncope: Status: Acute Code(s): R55 - Syncope and collapse Plan 1) HTN - per fabrice, observe for now and restart lisinopril 5 if indicated moving forward. recent HTN likely related to alcohol withdrawal. treat accordingly. 03/02 lisinopril 10 restarted due to continued elevated BP. 2) renal impairment - trend, keep in mind in making Rx decisions 3) mood - restarted prozac and trazodone 03/01 -03/02. no information presented supportive of bipolar or psychotic Dx. eval for PTSD. 4) HIV - screen positive 03/01. pt reports having been told in the she was HIV +, never treated. ID consult placed for eval/Tx. 03/03: Patient reports having some depression but low anxiety ; pt stated, I feel like the meds are helping . Pt denies SI/HI/VH/AH. attending groups. Continue current tx plan. Infection disease consult: Check CD4 count and viral load. Consider resistance screening. Obtain records from [place]. She should follow with [facility] on discharge [facility] program and call Татьяна Tsai RN at [phone] to set up care per her request. 03/04: Guarded. Pt stated, my depression is down. I'm always concerned about something. I'm worried about how long I will be here . Pt denies SI/HI/VH/AH. keeping to self. Continue current tx plan. 03/05: keeping to self. Pt stated, I'm feeling tired. I got a lot on my mind and about my situation. I'm not having any craving to drink . denies SI/HI/VH/AH. Continue current tx plan. waiting on lab results. Patient educated on: diagnosis, medication risk/benefits and therapeutic strategies Informed Consent: understands Reason for continued inpatient stay Substantial Risk for: med/psych decompensation Time Spent With Patient Time: Total time managing care of this patient today _20___ minutes.
[2023-03-05 17:54] LABS: HIV RNA PCR Qn Copies 7410 copies/mL (NOT DETECTED); HIV RNA PCR Qn Log Copies 3.87 (NOT DETECTED)
[2023-03-05] MEDS: Acetaminophen 325 MG TABLET 650 MG PO (17:57)
[2023-03-05 20:10] VITALS: BP 154/72; PULSE 74; RESP 16; TEMP 36.7; O2SAT 97
[2023-03-05] MEDS: traZODone HCL 100 MG TABLET PO (20:54)
--- NOTE | 2023-03-06 08:02 | HO.PSYCHPN ---
Subjective Subjective Date of Service: 03/06/23 Reason For Visit: si/ alcohol Subjective Notes: Conditional Voluntary Medical Problems Affecting Mental Status: Yes (? high bp) Interim History: 62 yo with hx of alcohol dependnce and depression, having elevated bp - pt reports has had most of their lives- presented to er on admission with alcohol lvl of 240, ciwa 3 as of 03/02 and I believe protocol was dced, She was drinking catherine prior to admission- Pt reports mood ok today- wanted to know difference between fluoxetine and ativan for anxiety. Medication Compliance: Yes Side effects from medications: No Attending Groups: Yes Review of Systems Acute medical concerns: Yes blood pressure- though it might or might not be affecting her mental health Medical Review of Systems: unchanged Review of Systems: no chest pain or headache. Mental Status Exam Mental Status Exam Patient Appearance: Well Grooomed and Appropriate Patient Orientation: Person, Place, Time and Situation Level of Consciousness: Awake and Appropriate Patient Behavior: Appropriate Mood Description: Calm Affect Description: Appropriate Patient Cognition Impaired: No Ability to Follow Directions: Good Speech Pattern: Clear Hallucinations: None Delusions: Not Present Judgement: Fair Diagnostics Vital Signs (24Hr): Vital Signs - 24 hr 03/05/23 20:10 Temperature 98.0 F Pulse Rate 74 Respiratory Rate 16 Blood Pressure 154/72 H Pulse Oximetry 97 Oxygen Delivery Method Room Air BMI result Body Mass Index 23.3 Labs 02/27/23 22:47 02/28/23 08:53 Labs: Laboratory Results - last 48 hr 03/03/23 03/04/23 20:07 17:26 T.pallidum Ab (EIA) Nonreactive HIV-1 RNA copies/mL 7410 H HIV-1 RNA logcopies/mL 3.87 H Medications Medications Current Medications Acetaminophen (Acetaminophen 325 Mg Tablet) 650 mg PO Q6H PRN PRN Reason: Headache/Pain Mild Scale (1-3) Last Admin: 03/05/23 17:57 Dose: 650 mg Al Hydroxide/Mg Hydroxide (Magnesium Hydrox/Alum Hydrox 30 Ml Oral.Susp) 30 ml PO Q6H PRN PRN Reason: Heartburn/Nausea Clonidine HCl (Clonidine Hcl 0.1 Mg Tablet) 0.1 mg PO Q2H PRN; Protocol PRN Reason: SBP > 160 Last Admin: 03/01/23 07:54 Dose: 0.1 mg Fluoxetine HCl (Fluoxetine Hcl 20 Mg Capsule) 40 mg PO DAILY [facility] Last Admin: 03/05/23 08:47 Dose: 40 mg Hydroxyzine HCl (Hydroxyzine Hcl 25 Mg Tablet) 25 mg PO Q6H PRN PRN Reason: Anxiety Lisinopril (Lisinopril 10 Mg Tablet) 10 mg PO BID [facility]; Protocol Last Admin: 03/05/23 20:54 Dose: 10 mg Loratadine (Loratadine 10 Mg Tablet) 10 mg PO DAILY [facility] Last Admin: 03/05/23 08:47 Dose: 10 mg Magnesium Hydroxide (Milk Of Magnesia 30 Ml Oral.Susp) 30 ml PO DAILY PRN PRN Reason: Constipation Nicotine Polacrilex (Nicotine Polacrilex 2 Mg Gum) 4 mg BUCCAL Q2H PRN PRN Reason: Nicotine Cravings Ondansetron HCl (Ondansetron Odt 4 Mg Tab.Rapdis) 4 mg TRANSLINGU Q6H PRN PRN Reason: Nausea Trazodone HCl (Trazodone Hcl 50 Mg Tablet) 50 mg PO BEDTIME MRX1 PRN PRN Reason: Insomnia Trazodone HCl (Trazodone Hcl 100 Mg Tablet) 100 mg PO BEDTIME [facility] Last Admin: 03/05/23 20:54 Dose: 100 mg Allergies Allergies Allergy/AdvReac Type Severity Reaction Status Date / Time No Known Allergies Allergy Verified 02/27/23 21:41 Assessment & Plan Assessment & Plan (1) Depression: Status: Acute Code(s): F32.A - Depression, unspecified Assessment and Plan: 03/06 doing better with this (2) HIV antibody positive: Status: Acute Code(s): Z21 - Asymptomatic human immunodeficiency virus [HIV] infection status Assessment and Plan: Confirmatory testing is pending. I cant find record of medications or results of HIV CD4 count or viral load from [place] (3) Alcohol dependence: Status: Acute Code(s): F10.20 - Alcohol dependence, uncomplicated Assessment and Plan: ? ciwa dced but bp inc, however pulse stable.. (4) Vasovagal syncope: Status: Acute Code(s): R55 - Syncope and collapse Plan 1) HTN - per fabrice, observe for now and restart lisinopril 5 if indicated moving forward. recent HTN likely related to alcohol withdrawal. treat accordingly. 03/02 lisinopril 10 restarted due to continued elevated BP. 2) renal impairment - trend, keep in mind in making Rx decisions 3) mood - restarted prozac and trazodone 03/01 -03/02. no information presented supportive of bipolar or psychotic Dx. eval for PTSD. 4) HIV - screen positive 03/01. pt reports having been told in the 90s she was HIV +, never treated. ID consult placed for eval/Tx. 03/03: Patient reports having some depression but low anxiety ; pt stated, I feel like the meds are helping . Pt denies SI/HI/VH/AH. attending groups. Continue current tx plan. Infection disease consult: Check CD4 count and viral load. Consider resistance screening. Obtain records from [place]. She should follow with [facility] on discharge [facility] program and call Татьяна Tsai RN at [phone] to set up care per her request. 03/04: Guarded. Pt stated, my depression is down. I'm always concerned about something. I'm worried about how long I will be here . Pt denies SI/HI/VH/AH. keeping to self. Continue current tx plan. 03/05: keeping to self. Pt stated, I'm feeling tired. I got a lot on my mind and about my situation. I'm not having any craving to drink . denies SI/HI/VH/AH. Continue current tx plan. waiting on lab results. 03/06 ongoing issues with bp today requiring clonidine 2 x and I added lorazepam x1 - may need to reconsult hospitalist re stabilizing bp as lisinopril 10mg bid Patient educated on: medication risk/benefits and medical condition Informed Consent: understands Reason for continued inpatient stay Substantial Risk for: rapid decompensation and med/psych decompensation Time Spent With Patient Time: Total time managing care of this patient today ____ minutes.
[2023-03-06 08:25] VITALS: BP 177/94; PULSE 59; RESP 16; TEMP 37.1; O2SAT 96
[2023-03-06] MEDS: FLUoxetine HCl 20 MG CAPSULE 40 MG PO (08:28)
[2023-03-06] MEDS: lisinopriL 10 MG TABLET PO ×2 (08:29→20:16)
[2023-03-06] MEDS: Loratadine 10 MG TABLET PO (08:29)
[2023-03-06] MEDS: cloNIDine HCL 0.1 MG TABLET PO ×2 (08:33→22:21)
[2023-03-06 10:02] VITALS: BP 128/64; PULSE 65; RESP 18
--- NOTE | 2023-03-06 12:51 | P.EN_ITS ---
Event Note Date of Service: 03/06/23 Event Note: Blood pressures improving with lisinopril 10mg BID. BP remains elevated am. Add amlodipine 5mg at bedtime. Avoid using clonidine prn during medication adjustment to avoid hypotension while scheduled medications are being optimized. Medication placed on hold. Ple ase contact hospitalist for any questions or concerns. Will continue monitoring blood pressures until reasonably controlled. Time Spent With Patient Time: Total time managing care of this patient today ____ minutes.
[2023-03-06 20:15] VITALS: BP 180/84; PULSE 63; RESP 18; TEMP 36.7; O2SAT 98
[2023-03-06] MEDS: amLODIPine Besylate 5 MG TABLET PO ×2 (20:16→23:24)
[2023-03-06 21:25] VITALS: BP 193/95; PULSE 60; RESP 16
[2023-03-06 21:35] VITALS: BP 180/98; PULSE 59; RESP 16
[2023-03-06] MEDS: LORazepam 1 MG TABLET PO (22:21)
[2023-03-06 22:53] VITALS: BP 188/96; PULSE 63; RESP 16
--- NOTE | 2023-03-06 22:57 | PC.NURSE ---
Notified hospitalist and Shannan Bo of the continued elevation of blood pressure despite clonidine 0.1 mg PO and Ativan 1 mg PO given 20 minutes ago. BP 188/96 HR - 63
[2023-03-07 00:25] VITALS: BP 150/87; PULSE 62; RESP 14; O2SAT 95
[2023-03-07 08:25] VITALS: BP 129/78; PULSE 62; RESP 16; TEMP 36.3; O2SAT 98
[2023-03-07] MEDS: Loratadine 10 MG TABLET PO (08:28)
[2023-03-07] MEDS: Bictegrav/Emtricit/Tenofov Ala TABLET 1 TAB PO (08:29)
[2023-03-07] MEDS: lisinopriL 20 MG TABLET PO ×2 (08:29→20:09)
[2023-03-07] MEDS: FLUoxetine HCl 20 MG CAPSULE 40 MG PO (08:29)
[2023-03-07] MEDS: Acetaminophen 325 MG TABLET 650 MG PO (08:55)
--- NOTE | 2023-03-07 12:49 | P.PNPSI_ITS ---
Subjective Subjective Date of Service: 03/07/23 Reason For Visit: si/ alcohol Subjective Notes: Conditional Voluntary Interim History: 62 yo patient and this provider both relieved that patient's bp has come down. Pt feeling better on fluoxetine- denying current si, and less depressed- Medication Compliance: Yes Side effects from medications: No Attending Groups: Intermittent Review of Systems Acute medical concerns: No BP improved Mental Status Exam Mental Status Exam Patient Appearance: Well Grooomed and Appropriate Patient Orientation: Person, Place, Time and Situation Level of Consciousness: Awake and Appropriate Patient Behavior: Appropriate Mood Description: Calm Affect Description: Appropriate Patient Cognition Impaired: No Ability to Follow Directions: Good Speech Pattern: Clear Hallucinations: None Delusions: Not Present Judgement: Fair Diagnostics Vital Signs (24Hr): Vital Signs - 24 hr 03/06/23 20:15 03/06/23 21:25 03/06/23 21:35 Temperature 98.1 F Pulse Rate 63 60 59 Respiratory Rate 18 16 16 Blood Pressure 180/84 H 193/95 H 180/98 H Pulse Oximetry 98 Oxygen Delivery Method Room Air 03/06/23 22:53 03/07/23 00:25 03/07/23 08:25 Temperature 97.3 F Pulse Rate 63 62 62 Respiratory Rate 16 14 16 Blood Pressure 188/96 H 150/87 H 129/78 Pulse Oximetry 95 98 Oxygen Delivery Method Room Air Room Air BMI result Body Mass Index 23.3 Labs 02/27/23 22:47 02/28/23 08:53 Labs: Laboratory Results - last 48 hr 03/03/23 20:07 HIV-1 RNA copies/mL 7410 H HIV-1 RNA logcopies/mL 3.87 H Medications Medications Current Medications Acetaminophen (Acetaminophen 325 Mg Tablet) 650 mg PO Q6H PRN PRN Reason: Headache/Pain Mild Scale (1-3) Last Admin: 03/07/23 08:55 Dose: 650 mg Al Hydroxide/Mg Hydroxide (Magnesium Hydrox/Alum Hydrox 30 Ml Oral.Susp) 30 ml PO Q6H PRN PRN Reason: Heartburn/Nausea Amlodipine Besylate (Amlodipine Besylate 10 Mg Tablet) 10 mg PO BEDTIME [facility]; Protocol Bictegravir/Emtricitabine/Tenofovir (Bictegrav/Emtricit/Tenofov Ala Tablet) 1 tab PO DAILY [facility] Last Admin: 03/07/23 08:29 Dose: 1 tab Clonidine HCl (Clonidine Hcl 0.1 Mg Tablet) 0.1 mg PO Q2H PRN; Protocol PRN Reason: SBP > 160 Last Admin: 03/06/23 22:21 Dose: 0.1 mg Fluoxetine HCl (Fluoxetine Hcl 20 Mg Capsule) 40 mg PO DAILY [facility] Last Admin: 03/07/23 08:29 Dose: 40 mg Hydroxyzine HCl (Hydroxyzine Hcl 25 Mg Tablet) 25 mg PO Q6H PRN PRN Reason: Anxiety Lisinopril (Lisinopril 20 Mg Tablet) 20 mg PO BID [facility]; Protocol Last Admin: 03/07/23 08:29 Dose: 20 mg Loratadine (Loratadine 10 Mg Tablet) 10 mg PO DAILY [facility] Last Admin: 03/07/23 08:28 Dose: 10 mg Magnesium Hydroxide (Milk Of Magnesia 30 Ml Oral.Susp) 30 ml PO DAILY PRN PRN Reason: Constipation Nicotine Polacrilex (Nicotine Polacrilex 2 Mg Gum) 4 mg BUCCAL Q2H PRN PRN Reason: Nicotine Cravings Ondansetron HCl (Ondansetron Odt 4 Mg Tab.Rapdis) 4 mg TRANSLINGU Q6H PRN PRN Reason: Nausea Trazodone HCl (Trazodone Hcl 50 Mg Tablet) 50 mg PO BEDTIME MRX1 PRN PRN Reason: Insomnia Trazodone HCl (Trazodone Hcl 100 Mg Tablet) 100 mg PO BEDTIME [facility] Last Admin: 03/06/23 23:25 Dose: Not Given Allergies Allergies Allergy/AdvReac Type Severity Reaction Status Date / Time No Known Allergies Allergy Verified 02/27/23 21:41 Assessment & Plan Assessment & Plan (1) Depression: Status: Acute Code(s): F32.A - Depression, unspecified Assessment and Plan: 03/06 doing better with this (2) HIV antibody positive: Status: Acute Code(s): Z21 - Asymptomatic human immunodeficiency virus [HIV] infection status Assessment and Plan: Confirmatory testing is pending. I cant find record of medications or results of HIV CD4 count or viral load from [place] (3) Alcohol dependence: Status: Acute Code(s): F10.20 - Alcohol dependence, uncomplicated Assessment and Plan: ? ciwa dced but bp inc, however pulse stable.. (4) Vasovagal syncope: Status: Acute Code(s): R55 - Syncope and collapse Plan 1) HTN - per fabrice, observe for now and restart lisinopril 5 if indicated moving forward. recent HTN likely related to alcohol withdrawal. treat accordingly. 03/02 lisinopril 10 restarted due to continued elevated BP. 2) renal impairment - trend, keep in mind in making Rx decisions 3) mood - restarted prozac and trazodone 03/01 -03/02. no information presented supportive of bipolar or psychotic Dx. eval for PTSD. 4) HIV - screen positive 03/01. pt reports having been told in the she was HIV +, never treated. ID consult placed for eval/Tx. 03/03: Patient reports having some depression but low anxiety ; pt stated, I feel like the meds are helping . Pt denies SI/HI/VH/AH. attending groups. Continue current tx plan. Infection disease consult: Check CD4 count and viral load. Consider resistance screening. Obtain records from [place]. She should follow with [facility] on discharge [facility] program and call Татьяна Tsai RN at [phone] to set up care per her request. 03/04: Guarded. Pt stated, my depression is down. I'm always concerned about something. I'm worried about how long I will be here . Pt denies SI/HI/VH/AH. keeping to self. Continue current tx plan. 03/05: keeping to self. Pt stated, I'm feeling tired. I got a lot on my mind and about my situation. I'm not having any craving to drink . denies SI/HI/VH/AH. Continue current tx plan. waiting on lab results. 03/06 ongoing issues with bp today requiring clonidine 2 x and I added lorazepam x1 - may need to reconsult hospitalist re stabilizing bp as lisinopril 10mg bid 03/07 - seen by hospitalist and signed off will continue to follow if needed but bp back in range- mood improved- Patient educated on: medication risk/benefits Informed Consent: understands Reason for continued inpatient stay Substantial Risk for: rapid decompensation Time Spent With Patient Time: Total time managing care of this patient today ____ minutes.
[2023-03-07 20:00] VITALS: BP 133/73; PULSE 63; RESP 16; TEMP 36.7; O2SAT 98
[2023-03-07] MEDS: amLODIPine Besylate 10 MG TABLET PO (20:10)
[2023-03-07] MEDS: traZODone HCL 100 MG TABLET PO (23:45)
[2023-03-08 08:19] VITALS: BP 148/77; PULSE 63; RESP 18; TEMP 36.4; O2SAT 98
[2023-03-08] MEDS: FLUoxetine HCl 20 MG CAPSULE 40 MG PO (08:25)
[2023-03-08] MEDS: lisinopriL 20 MG TABLET PO ×2 (08:25→22:58)
[2023-03-08] MEDS: Bictegrav/Emtricit/Tenofov Ala TABLET 1 TAB PO (08:25)
[2023-03-08] MEDS: Loratadine 10 MG TABLET PO (08:25)
--- NOTE | 2023-03-08 11:20 | PM.EVENT ---
Event Note Date of Service: 03/08/23 Event Note: Blood pressures more controlled. Continue lisinopril 10mg BID and amlodipine 10mg at bedtime as prescribed. Please do not use clonidine as a prn measure for elevated blood pressure readings. This medication has been discontinued. Please reach out to a hospitalist. Time Spent With Patient Time: Total time managing care of this patient today ____ minutes.
--- NOTE | 2023-03-08 12:30 | P.PNPSI_ITS ---
Subjective Subjective Date of Service: 03/08/23 Reason For Visit: si/ alcohol Subjective Notes: Conditional Voluntary Interim History: 62 yo reports continuing to do better, not feeling quite ready to leave but not able to identify ongoing sys- Sleep is ok , mood improved, anxiety better- Blood pressure improved- Medication Compliance: Yes Side effects from medications: No Attending Groups: Yes Review of Systems Acute medical concerns: No Medical Review of Systems: unchanged Mental Status Exam Mental Status Exam Narrative: Sitting up in main area- social with peers- Patient Appearance: Well Grooomed and Appropriate Patient Orientation: Person, Place, Time and Situation Level of Consciousness: Awake and Alert Patient Behavior: Appropriate and Cooperative Mood Description: Calm Affect Description: Appropriate Patient Cognition Impaired: No Ability to Follow Directions: Good Speech Pattern: Clear Hallucinations: None Delusions: Not Present Thought Process: Intact and Goal Oriented Judgement: Good (though desire to stay may be based on no where to go - ) Diagnostics Vital Signs (24Hr): Vital Signs - 24 hr 03/07/23 20:00 03/08/23 08:19 Temperature 98.1 F 97.5 F Pulse Rate 63 63 Respiratory Rate 16 18 Blood Pressure 133/73 148/77 H Pulse Oximetry 98 98 Oxygen Delivery Method Room Air Room Air BMI result Body Mass Index 23.3 Labs 02/27/23 22:47 02/28/23 08:53 Medications Medications Current Medications Acetaminophen (Acetaminophen 325 Mg Tablet) 650 mg PO Q6H PRN PRN Reason: Headache/Pain Mild Scale (1-3) Last Admin: 03/07/23 08:55 Dose: 650 mg Al Hydroxide/Mg Hydroxide (Magnesium Hydrox/Alum Hydrox 30 Ml Oral.Susp) 30 ml PO Q6H PRN PRN Reason: Heartburn/Nausea Amlodipine Besylate (Amlodipine Besylate 10 Mg Tablet) 10 mg PO BEDTIME [facility]; Protocol Last Admin: 03/07/23 20:10 Dose: 10 mg Bictegravir/Emtricitabine/Tenofovir (Bictegrav/Emtricit/Tenofov Ala Tablet) 1 tab PO DAILY [facility] Last Admin: 03/08/23 08:25 Dose: 1 tab Fluoxetine HCl (Fluoxetine Hcl 20 Mg Capsule) 40 mg PO DAILY [facility] Last Admin: 03/08/23 08:25 Dose: 40 mg Hydroxyzine HCl (Hydroxyzine Hcl 25 Mg Tablet) 25 mg PO Q6H PRN PRN Reason: Anxiety Lisinopril (Lisinopril 20 Mg Tablet) 20 mg PO BID [facility]; Protocol Last Admin: 03/08/23 08:25 Dose: 20 mg Loratadine (Loratadine 10 Mg Tablet) 10 mg PO DAILY [facility] Last Admin: 03/08/23 08:25 Dose: 10 mg Magnesium Hydroxide (Milk Of Magnesia 30 Ml Oral.Susp) 30 ml PO DAILY PRN PRN Reason: Constipation Nicotine Polacrilex (Nicotine Polacrilex 2 Mg Gum) 4 mg BUCCAL Q2H PRN PRN Reason: Nicotine Cravings Ondansetron HCl (Ondansetron Odt 4 Mg Tab.Rapdis) 4 mg TRANSLINGU Q6H PRN PRN Reason: Nausea Trazodone HCl (Trazodone Hcl 50 Mg Tablet) 50 mg PO BEDTIME MRX1 PRN PRN Reason: Insomnia Trazodone HCl (Trazodone Hcl 100 Mg Tablet) 100 mg PO BEDTIME [facility] Last Admin: 03/07/23 23:45 Dose: 100 mg Allergies Allergies Allergy/AdvReac Type Severity Reaction Status Date / Time No Known Allergies Allergy Verified 02/27/23 21:41 Assessment & Plan Assessment & Plan (1) Depression: Status: Acute Code(s): F32.A - Depression, unspecified Assessment and Plan: 03/06 doing better with this (2) HIV antibody positive: Status: Acute Code(s): Z21 - Asymptomatic human immunodeficiency virus [HIV] infection status Assessment and Plan: Confirmatory testing is pending. I cant find record of medications or results of HIV CD4 count or viral load from [place] (3) Alcohol dependence: Status: Acute Code(s): F10.20 - Alcohol dependence, uncomplicated Assessment and Plan: ? ciwa dced but bp inc, however pulse stable.. (4) Vasovagal syncope: Status: Acute Code(s): R55 - Syncope and collapse Plan 1) HTN - per fabrice, observe for now and restart lisinopril 5 if indicated moving forward. recent HTN likely related to alcohol withdrawal. treat accordingly. 03/02 lisinopril 10 restarted due to continued elevated BP. 2) renal impairment - trend, keep in mind in making Rx decisions 3) mood - restarted prozac and trazodone 03/01 -03/02. no information presented supportive of bipolar or psychotic Dx. eval for PTSD. 4) HIV - screen positive 03/01. pt reports having been told in the 90s she was HIV +, never treated. ID consult placed for eval/Tx. 03/03: Patient reports having some depression but low anxiety ; pt stated, I feel like the meds are helping . Pt denies SI/HI/VH/AH. attending groups. Continue current tx plan. Infection disease consult: Check CD4 count and viral load. Consider resistance screening. Obtain records from [place]. She should follow with [facility] on discharge [facility] program and call Татьяна Tsai RN at [phone] to set up care per her request. 03/04: Guarded. Pt stated, my depression is down. I'm always concerned about something. I'm worried about how long I will be here . Pt denies SI/HI/VH/AH. keeping to self. Continue current tx plan. 03/05: keeping to self. Pt stated, I'm feeling tired. I got a lot on my mind and about my situation. I'm not having any craving to drink . denies SI/HI/VH/AH. Continue current tx plan. waiting on lab results. 03/06 ongoing issues with bp today requiring clonidine 2 x and I added lorazepam x1 - may need to reconsult hospitalist re stabilizing bp as lisinopril 10mg bid 03/07 - seen by hospitalist and signed off will continue to follow if needed but bp back in range- mood improved- 03/08/23 - CTP Patient educated on: other Informed Consent: further education needed Reason for continued inpatient stay Substantial Risk for: rapid decompensation Time Spent With Patient Time: Total time managing care of this patient today ____ minutes.
[2023-03-08] MEDS: Multivitamin TABLET 1 TAB PO (13:24)
[2023-03-08] MEDS: traZODone HCL 100 MG TABLET PO (22:58)
[2023-03-08] MEDS: amLODIPine Besylate 10 MG TABLET PO (22:58)
[2023-03-08 23:00] VITALS: BP 197/88; PULSE 73; RESP 18; TEMP 36.6; O2SAT 97
--- NOTE | 2023-03-08 23:26 | PC.NURSE ---
Patient with elevated BP at HS 197/[address] Isidro made aware via [facility] Text waiting response. needle grinder CARMEN made aware.
[2023-03-08] MEDS: cloNIDine HCL 0.1 MG TABLET PO (23:41)
[2023-03-09 07:14] LABS: Absolute CD3 Count 1403 cells/uL (840-3060); Absolute CD4 Count 515 cells/uL (490-1740); Absolute CD8 Count 856 cells/uL (180-1170); Absolute Lymphocytes 1572 cells/uL (850-3900); Percent CD3 Cells 89 % (57-85); Percent CD4 Cells 33 % (30-61); Percent CD8 Cells 54 % (12-42)
[2023-03-09 07:15] VITALS: BP 138/69; PULSE 59; RESP 16; TEMP 36.2; O2SAT 99
[2023-03-09] MEDS: Tetrahydrozoline HCl 0.05% Oph 15 ML DRPBTL 1 DROP EYE-BOTH ×2 (08:52→20:32)
[2023-03-09] MEDS: Loratadine 10 MG TABLET PO (08:54)
[2023-03-09] MEDS: Multivitamin TABLET 1 TAB PO (08:54)
[2023-03-09] MEDS: Bictegrav/Emtricit/Tenofov Ala TABLET 1 TAB PO (08:54)
[2023-03-09] MEDS: FLUoxetine HCl 20 MG CAPSULE 40 MG PO (08:54)
[2023-03-09] MEDS: lisinopriL 20 MG TABLET PO ×2 (08:54→20:28)
[2023-03-09] MEDS: Naltrexone HCl 50 MG TABLET PO (12:45)
--- NOTE | 2023-03-09 14:56 | P.PNPSI_ITS ---
Subjective Subjective Date of Service: 03/09/23 Reason For Visit: si/ alcohol Interim History: calm, cooperative. feeling ready for discharge. will continue to work on aftercare planning and discharge once arranged. pt in understanding. feeling calm, good, denies safety concerns. agreeable to trial of naltrexone for AUD. Mental Status Exam Mental Status Exam Narrative: calm, cooperative. no PMA/PMR. speech soft, somewhat sparse. decreased prosody, nml latency. thoughts linear and logical. affect more flexible, normo-intense, non-labile. mood calm. good. no SI/SIBI/HI/AVH. Diagnostics Vital Signs (24Hr): Vital Signs - 24 hr 03/08/23 23:00 03/09/23 07:15 Temperature 97.9 F 97.1 F Pulse Rate 73 59 Respiratory Rate 18 16 Blood Pressure 197/88 H 138/69 Pulse Oximetry 97 99 Oxygen Delivery Method Room Air Room Air BMI result Body Mass Index 23.3 Labs 02/27/23 22:47 02/28/23 08:53 Labs: Laboratory Results - last 48 hr 03/03/23 20:07 Lymphocyte Subset Cmmnt TNP Total Lymphocytes 1572 % CD3 Cells 89 H Absolute CD3 Count 1403 % CD4 Cells 33 Absolute CD4 Count 515 CD4/CD8 Ratio 0.60 L % CD8 Cells 54 H Absolute CD8 Count 856 Medications Medications Current Medications Acetaminophen (Acetaminophen 325 Mg Tablet) 650 mg PO Q6H PRN PRN Reason: Headache/Pain Mild Scale (1-3) Last Admin: 03/07/23 08:55 Dose: 650 mg Al Hydroxide/Mg Hydroxide (Magnesium Hydrox/Alum Hydrox 30 Ml Oral.Susp) 30 ml PO Q6H PRN PRN Reason: Heartburn/Nausea Amlodipine Besylate (Amlodipine Besylate 10 Mg Tablet) 10 mg PO BEDTIME [facility]ATRI; Protocol Last Admin: 03/08/23 22:58 Dose: 10 mg Bictegravir/Emtricitabine/Tenofovir (Bictegrav/Emtricit/Tenofov Ala Tablet) 1 tab PO DAILY [facility] Last Admin: 03/09/23 08:54 Dose: 1 tab Fluoxetine HCl (Fluoxetine Hcl 20 Mg Capsule) 40 mg PO DAILY [facility] Last Admin: 03/09/23 08:54 Dose: 40 mg Hydroxyzine HCl (Hydroxyzine Hcl 25 Mg Tablet) 25 mg PO Q6H PRN PRN Reason: Anxiety Lisinopril (Lisinopril 20 Mg Tablet) 20 mg PO BID [facility]; Protocol Last Admin: 03/09/23 08:54 Dose: 20 mg Loratadine (Loratadine 10 Mg Tablet) 10 mg PO DAILY [facility] Last Admin: 03/09/23 08:54 Dose: 10 mg Magnesium Hydroxide (Milk Of Magnesia 30 Ml Oral.Susp) 30 ml PO DAILY PRN PRN Reason: Constipation Multivitamins/Vitamin C (Multivitamin Tablet) 1 tab PO DAILY [facility] Last Admin: 03/09/23 08:54 Dose: 1 tab Naltrexone HCl (Naltrexone Hcl 50 Mg Tablet) 50 mg PO DAILY [facility] Last Admin: 03/09/23 12:45 Dose: 50 mg Nicotine Polacrilex (Nicotine Polacrilex 2 Mg Gum) 4 mg BUCCAL Q2H PRN PRN Reason: Nicotine Cravings Ondansetron HCl (Ondansetron Odt 4 Mg Tab.Rapdis) 4 mg TRANSLINGU Q6H PRN PRN Reason: Nausea Tetrahydrozoline HCl (Tetrahydrozoline Hcl 0.05% Oph 15 Ml Drpbtl) 1 drop EYE- BOTH QID PRN PRN Reason: Dry Eyes Last Admin: 03/09/23 08:52 Dose: 1 drop Trazodone HCl (Trazodone Hcl 50 Mg Tablet) 50 mg PO BEDTIME MRX1 PRN PRN Reason: Insomnia Trazodone HCl (Trazodone Hcl 100 Mg Tablet) 100 mg PO BEDTIME [facility] Last Admin: 03/08/23 22:58 Dose: 100 mg Allergies Allergies Allergy/AdvReac Type Severity Reaction Status Date / Time No Known Allergies Allergy Verified 02/27/23 21:41 Assessment & Plan Assessment & Plan (1) Depression: Status: Acute Code(s): F32.A - Depression, unspecified Assessment and Plan: 03/06 doing better with this (2) HIV antibody positive: Status: Acute Code(s): Z21 - Asymptomatic human immunodeficiency virus [HIV] infection status Assessment and Plan: Confirmatory testing is pending. I cant find record of medications or results of HIV CD4 count or viral load from [place] (3) Alcohol dependence: Status: Acute Code(s): F10.20 - Alcohol dependence, uncomplicated Assessment and Plan: ? ciwa dced but bp inc, however pulse stable.. (4) Vasovagal syncope: Status: Acute Code(s): R55 - Syncope and collapse Plan 1) HTN - per fabrice, observe for now and restart lisinopril 5 if indicated moving forward. recent HTN likely related to alcohol withdrawal. treat accordingly. 03/02 lisinopril 10 restarted due to continued elevated BP. 2) renal impairment - trend, keep in mind in making Rx decisions 3) mood - restarted prozac and trazodone 03/01 -03/02. no information presented supportive of bipolar or psychotic Dx. eval for PTSD. 4) HIV - screen positive 03/01. pt reports having been told in the she was HIV +, never treated. ID consult placed for eval/Tx. 03/03: Patient reports having some depression but low anxiety ; pt stated, I feel like the meds are helping . Pt denies SI/HI/VH/AH. attending groups. Continue current tx plan. Infection disease consult: Check CD4 count and viral load. Consider resistance screening. Obtain records from [place]. She should follow with [facility] on discharge [facility] program and call Татьяна Tsai RN at [phone] to set up care per her request. 03/04: Guarded. Pt stated, my depression is down. I'm always concerned about something. I'm worried about how long I will be here . Pt denies SI/HI/VH/AH. keeping to self. Continue current tx plan. 03/05: keeping to self. Pt stated, I'm feeling tired. I got a lot on my mind and about my situation. I'm not having any craving to drink . denies SI/HI/VH/AH. Continue current tx plan. waiting on lab results. 03/06 ongoing issues with bp today requiring clonidine 2 x and I added lorazepam x1 - may need to reconsult hospitalist re stabilizing bp as lisinopril 10mg bid 03/07 - seen by hospitalist and signed off will continue to follow if needed but bp back in range- mood improved- 03/08/23 - CTP 03/09: BP meds have been escalated, now lisinopril 20 mg BID, norvasc 10 mg daily. mood improved, feeling ready for discharge. aftercare planning underway, will DC once adequate plan in place. Reason for continued inpatient stay Substantial Risk for: inability to function and rapid decompensation Time Spent With Patient Time: Total time managing care of this patient today _25___ minutes.
[2023-03-09 20:10] VITALS: BP 151/76; PULSE 67; RESP 16; TEMP 35.8; O2SAT 96
[2023-03-09] MEDS: amLODIPine Besylate 10 MG TABLET PO (20:28)
[2023-03-09] MEDS: traZODone HCL 100 MG TABLET PO (22:49)
[2023-03-10] MEDS: hydrOXYzine HCL 25 MG TABLET PO (05:26)
[2023-03-10 08:19] VITALS: BP 149/76; PULSE 67; RESP 16; TEMP 36.4; O2SAT 98
[2023-03-10] MEDS: Bictegrav/Emtricit/Tenofov Ala TABLET 1 TAB PO (08:21)
[2023-03-10] MEDS: FLUoxetine HCl 20 MG CAPSULE 40 MG PO (08:21)
[2023-03-10] MEDS: Loratadine 10 MG TABLET PO (08:21)
[2023-03-10] MEDS: Naltrexone HCl 50 MG TABLET PO (08:21)
[2023-03-10] MEDS: lisinopriL 20 MG TABLET PO ×2 (08:22→20:31)
[2023-03-10] MEDS: Multivitamin TABLET 1 TAB PO (08:22)
[2023-03-10] MEDS: Acetaminophen 325 MG TABLET 650 MG PO (09:02)
--- NOTE | 2023-03-10 09:25 | PM.EVENT ---
Event Note Date of Service: 03/10/23 Event Note: Blood pressures have improved though remains slightly hypertensive overall. Will add hctz 12.5mg daily. Continue amlodipine 10mg daily and lisinopril 20mg BID. Continue avoiding clonidine as a standing prn for hypertension to avoid hypotension. Will continue following. Time Spent With Patient Time: Total time managing care of this patient today ____ minutes.
[2023-03-10] MEDS: Tetrahydrozoline HCl 0.05% Oph 15 ML DRPBTL 1 DROP EYE-BOTH ×2 (09:31→21:37)
[2023-03-10 09:52] VITALS: BP 98/52; PULSE 62
[2023-03-10 11:52] LABS: HIV 1 Antibody POSITIVE (Abnormal); HIV 2 Antibody NEGATIVE
--- NOTE | 2023-03-10 16:45 | HO.PSYCHPN ---
Subjective Subjective Date of Service: 03/10/23 Reason For Visit: si/ alcohol Interim History: calm, cooperative. c/o nightmares. denies trauma Hx. will hold off of prazosin for now. awaiting insurance. per staff denies Sx, feeling well. Mental Status Exam Mental Status Exam Narrative: calm, cooperative. no PMA/PMR. speech soft, somewhat sparse. decreased prosody, nml latency. thoughts linear and logical. affect more flexible, normo-intense, non-labile. mood calm. good. no SI/SIBI/HI/AVH. Diagnostics Vital Signs (24Hr): Vital Signs - 24 hr 03/09/23 20:10 03/10/23 08:19 03/10/23 09:52 Temperature 96.4 F L 97.6 F Pulse Rate 67 67 62 Respiratory Rate 16 16 Blood Pressure 151/76 H 149/76 H 98/52 L Pulse Oximetry 96 98 Oxygen Delivery Method Room Air Room Air BMI result Body Mass Index 23.3 Labs 02/27/23 22:47 02/28/23 08:53 Labs: Laboratory Results - last 48 hr 03/01/23 03/03/23 15:13 20:07 Lymphocyte Subset Cmmnt TNP Total Lymphocytes 1572 % CD3 Cells 89 H Absolute CD3 Count 1403 % CD4 Cells 33 Absolute CD4 Count 515 CD4/CD8 Ratio 0.60 L % CD8 Cells 54 H Absolute CD8 Count 856 HIV-1 Antibody POSITIVE (Abnormal) HIV-1 RNA, Qual (TMA) TNP HIV-2 Antibody NEGATIVE Medications Medications Current Medications Acetaminophen (Acetaminophen 325 Mg Tablet) 650 mg PO Q6H PRN PRN Reason: Headache/Pain Mild Scale (1-3) Last Admin: 03/10/23 09:02 Dose: 650 mg Al Hydroxide/Mg Hydroxide (Magnesium Hydrox/Alum Hydrox 30 Ml Oral.Susp) 30 ml PO Q6H PRN PRN Reason: Heartburn/Nausea Amlodipine Besylate (Amlodipine Besylate 10 Mg Tablet) 10 mg PO BEDTIME [facility]; Protocol Last Admin: 03/09/23 20:28 Dose: 10 mg Bictegravir/Emtricitabine/Tenofovir (Bictegrav/Emtricit/Tenofov Ala Tablet) 1 tab PO DAILY [facility] Last Admin: 03/10/23 08:21 Dose: 1 tab Fluoxetine HCl (Fluoxetine Hcl 20 Mg Capsule) 40 mg PO DAILY [facility] Last Admin: 03/10/23 08:21 Dose: 40 mg Hydrochlorothiazide (Hydrochlorothiazide 12.5 Mg Tablet) 12.5 mg PO DAILY [facility]; Protocol Last Admin: 03/10/23 09:52 Dose: 12.5 mg Hydroxyzine HCl (Hydroxyzine Hcl 25 Mg Tablet) 25 mg PO Q6H PRN PRN Reason: Anxiety Last Admin: 03/10/23 05:26 Dose: 25 mg Lisinopril (Lisinopril 20 Mg Tablet) 20 mg PO BID [facility]; Protocol Last Admin: 03/10/23 08:22 Dose: 20 mg Loratadine (Loratadine 10 Mg Tablet) 10 mg PO DAILY [facility] Last Admin: 03/10/23 08:21 Dose: 10 mg Magnesium Hydroxide (Milk Of Magnesia 30 Ml Oral.Susp) 30 ml PO DAILY PRN PRN Reason: Constipation Multivitamins/Vitamin C (Multivitamin Tablet) 1 tab PO DAILY [facility] Last Admin: 03/10/23 08:22 Dose: 1 tab Naltrexone HCl (Naltrexone Hcl 50 Mg Tablet) 50 mg PO DAILY [facility] Last Admin: 03/10/23 08:21 Dose: 50 mg Nicotine Polacrilex (Nicotine Polacrilex 2 Mg Gum) 4 mg BUCCAL Q2H PRN PRN Reason: Nicotine Cravings Ondansetron HCl (Ondansetron Odt 4 Mg Tab.Rapdis) 4 mg TRANSLINGU Q6H PRN PRN Reason: Nausea Tetrahydrozoline HCl (Tetrahydrozoline Hcl 0.05% Oph 15 Ml Drpbtl) 1 drop EYE-BOTH QID PRN PRN Reason: Dry Eyes Last Admin: 03/10/23 09:31 Dose: 1 drop Trazodone HCl (Trazodone Hcl 50 Mg Tablet) 50 mg PO BEDTIME MRX1 PRN PRN Reason: Insomnia Trazodone HCl (Trazodone Hcl 100 Mg Tablet) 100 mg PO BEDTIME [facility]CLUD[facility] Last Admin: 03/09/23 22:49 Dose: 100 mg Allergies Allergies Allergy/AdvReac Type Severity Reaction Status Date / Time No Known Allergies Allergy Verified 02/27/23 21:41 Assessment & Plan Assessment & Plan (1) Depression: Status: Acute Code(s): F32.A - Depression, unspecified Assessment and Plan: 03/06 doing better with this (2) HIV antibody positive: Status: Acute Code(s): Z21 - Asymptomatic human immunodeficiency virus [HIV] infection status Assessment and Plan: Confirmatory testing is pending. I cant find record of medications or results of HIV CD4 count or viral load from [place] (3) Alcohol dependence: Status: Acute Code(s): F10.20 - Alcohol dependence, uncomplicated Assessment and Plan: ? ciwa dced but bp inc, however pulse stable.. (4) Vasovagal syncope: Status: Acute Code(s): R55 - Syncope and collapse Plan 1) HTN - per fabrice, observe for now and restart lisinopril 5 if indicated moving forward. recent HTN likely related to alcohol withdrawal. treat accordingly. 03/02 lisinopril 10 restarted due to continued elevated BP. 2) renal impairment - trend, keep in mind in making Rx decisions 3) mood - restarted prozac and trazodone 03/01 -03/02. no information presented supportive of bipolar or psychotic Dx. eval for PTSD. 4) HIV - screen positive 03/01. pt reports having been told in the she was HIV +, never treated. ID consult placed for eval/Tx. 03/03: Patient reports having some depression but low anxiety ; pt stated, I feel like the meds are helping . Pt denies SI/HI/VH/AH. attending groups. Continue current tx plan. Infection disease consult: Check CD4 count and viral load. Consider resistance screening. Obtain records from [place]. She should follow with [facility] on discharge [facility] program and call Татьяна Tsai RN at [phone] to set up care per her request. 03/04: Guarded. Pt stated, my depression is down. I'm always concerned about something. I'm worried about how long I will be here . Pt denies SI/HI/VH/AH. keeping to self. Continue current tx plan. 03/05: keeping to self. Pt stated, I'm feeling tired. I got a lot on my mind and about my situation. I'm not having any craving to drink . denies SI/HI/VH/AH. Continue current tx plan. waiting on lab results. 03/06 ongoing issues with bp today requiring clonidine 2 x and I added lorazepam x1 - may need to reconsult hospitalist re stabilizing bp as lisinopril 10mg bid 03/07 - seen by hospitalist and signed off will continue to follow if needed but bp back in range- mood improved- 03/08/23 - CTP 03/09: BP meds have been escalated, now lisinopril 20 mg BID, norvasc 10 mg daily. mood improved, feeling ready for discharge. aftercare planning underway, will DC once adequate plan in place. 03/10: BP appears somewhat labile. continue to follow and adjust as indicated. remains stable, awaiting insurance coverage for adequate DC planning. Reason for continued inpatient stay Substantial Risk for: inability to function and rapid decompensation Time Spent With Patient Time: Total time managing care of this patient today __25__ minutes.
[2023-03-10 18:07] VITALS: BP 132/64; PULSE 64; RESP 18
[2023-03-10] MEDS: amLODIPine Besylate 10 MG TABLET PO (20:31)
[2023-03-10] MEDS: traZODone HCL 100 MG TABLET PO (20:31)
[2023-03-11 07:00] VITALS: BMI 24.2
[2023-03-11] MEDS: Loratadine 10 MG TABLET PO (08:04)
[2023-03-11] MEDS: lisinopriL 20 MG TABLET PO (08:04)
[2023-03-11] MEDS: Bictegrav/Emtricit/Tenofov Ala TABLET 1 TAB PO (08:04)
[2023-03-11] MEDS: FLUoxetine HCl 20 MG CAPSULE 40 MG PO (08:05)
[2023-03-11] MEDS: Multivitamin TABLET 1 TAB PO (08:05)
[2023-03-11 08:13] VITALS: BP 142/88; PULSE 66; RESP 16; TEMP 37; O2SAT 98
[2023-03-11] MEDS: Tetrahydrozoline HCl 0.05% Oph 15 ML DRPBTL 1 DROP EYE-BOTH ×2 (10:13→20:43)
[2023-03-11] MEDS: Milk of Magnesia 30 ML ORAL.SUSP PO (10:13)
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
[2023-03-11 15:37] VITALS: BP 164/74; PULSE 62
[2023-03-11 20:22] VITALS: BP 159/74; PULSE 59; RESP 18; TEMP 36.6; O2SAT 98
[2023-03-11] MEDS: traZODone HCL 100 MG TABLET PO (20:42)
[2023-03-11] MEDS: traZODone HCL 50 MG TABLET PO (20:42)
[2023-03-12 06:00] VITALS: BP 132/78; PULSE 66; RESP 18; TEMP 36.2; O2SAT 98
[2023-03-12] MEDS: Multivitamin TABLET 1 TAB PO (08:29)
[2023-03-12] MEDS: Bictegrav/Emtricit/Tenofov Ala TABLET 1 TAB PO (08:31)
[2023-03-12] MEDS: Loratadine 10 MG TABLET PO (08:32)
[2023-03-12] MEDS: Tetrahydrozoline HCl 0.05% Oph 15 ML DRPBTL 1 DROP EYE-BOTH ×2 (12:07→21:30)
[2023-03-12] MEDS: Milk of Magnesia 30 ML ORAL.SUSP PO (12:07)
--- NOTE | 2023-03-12 15:06 | HO.PSYCHPN ---
Subjective Subjective Date of Service: 03/12/23 Reason For Visit: si/ alcohol Interim History: calm, cooperative. c/o some sedation with clonidine. agrees to DC morning dose and continue with afternoon and HS doses. no nightmares. c/o arm/neck pain. per staff, dep 0, anx 10. social. taking meds. neck/arm pain. Mental Status Exam Mental Status Exam Narrative: calm, cooperative. no PMA/PMR. speech nml rate, amount, loudness, tone, latency. thoughts linear and logical. affect more flexible, normo-intense, non-labile. mood good. no SI/SIBI/HI/AVH expressed. Diagnostics Vital Signs (24Hr): Vital Signs - 24 hr 03/11/23 15:37 03/11/23 20:22 03/12/23 06:00 Temperature 97.9 F 97.2 F Pulse Rate 62 59 66 Respiratory Rate 18 18 Blood Pressure 164/74 H 159/74 H 132/78 Pulse Oximetry 98 98 Oxygen Delivery Method Room Air Room Air BMI result Body Mass Index 24.2 Labs 02/27/23 22:47 02/28/23 08:53 Medications Medications Current Medications Acetaminophen (Acetaminophen 325 Mg Tablet) 650 mg PO Q6H PRN PRN Reason: Headache/Pain Mild Scale (1-3) Last Admin: 03/10/23 09:02 Dose: 650 mg Al Hydroxide/Mg Hydroxide (Magnesium Hydrox/Alum Hydrox 30 Ml Oral.Susp) 30 ml PO Q6H PRN PRN Reason: Heartburn/Nausea Amlodipine Besylate (Amlodipine Besylate 10 Mg Tablet) 10 mg PO BEDTIME [facility]; Protocol Last Admin: 03/11/23 20:42 Dose: 10 mg Bictegravir/Emtricitabine/Tenofovir (Bictegrav/Emtricit/Tenofov Ala Tablet) 1 tab PO DAILY [facility] Last Admin: 03/12/23 08:31 Dose: 1 tab Clonidine HCl (Clonidine Hcl 0.1 Mg Tablet) 0.05 mg PO BID@1500,2100 [facility]; Protocol Fluoxetine HCl (Fluoxetine Hcl 20 Mg Capsule) 40 mg PO DAILY [facility] Last Admin: 03/12/23 08:28 Dose: 40 mg Fluticasone Propionate (Fluticasone Propionate Nasal 16 Gm [place]) 1 spray NOSTRIL-B BID PRN PRN Reason: nasal/sinus congestion Last Admin: 03/12/23 12:07 Dose: 1 spray Hydrochlorothiazide (Hydrochlorothiazide 12.5 Mg Tablet) 12.5 mg PO DAILY [facility]; Protocol Last Admin: 03/12/23 08:29 Dose: 12.5 mg Hydroxyzine HCl (Hydroxyzine Hcl 25 Mg Tablet) 25 mg PO Q6H PRN PRN Reason: Anxiety Last Admin: 03/10/23 05:26 Dose: 25 mg Lisinopril (Lisinopril 20 Mg Tablet) 20 mg PO BID [facility]; Protocol Last Admin: 03/12/23 08:28 Dose: 20 mg Loratadine (Loratadine 10 Mg Tablet) 10 mg PO DAILY [facility] Last Admin: 03/12/23 08:32 Dose: 10 mg Magnesium Hydroxide (Milk Of Magnesia 30 Ml Oral.Susp) 30 ml PO DAILY PRN PRN Reason: Constipation Last Admin: 03/12/23 12:07 Dose: 30 ml Magnesium Hydroxide (Milk Of Magnesia 30 Ml Oral.Susp) 30 ml PO DAILY PRN PRN Reason: constipation Multivitamins/Vitamin C (Multivitamin Tablet) 1 tab PO DAILY [facility] Last Admin: 03/12/23 08:29 Dose: 1 tab Naltrexone HCl (Naltrexone Hcl 50 Mg Tablet) 50 mg PO DAILY [facility] Last Admin: 03/12/23 08:29 Dose: 50 mg Nicotine Polacrilex (Nicotine Polacrilex 2 Mg Gum) 4 mg BUCCAL Q2H PRN PRN Reason: Nicotine Cravings Ondansetron HCl (Ondansetron Odt 4 Mg Tab.Rapdis) 4 mg TRANSLINGU Q6H PRN PRN Reason: Nausea Tetrahydrozoline HCl (Tetrahydrozoline Hcl 0.05% Oph 15 Ml Drpbtl) 1 drop EYE-BOTH QID PRN PRN Reason: Dry Eyes Last Admin: 03/12/23 12:07 Dose: 1 drop Trazodone HCl (Trazodone Hcl 50 Mg Tablet) 50 mg PO BEDTIME MRX1 PRN PRN Reason: Insomnia Last Admin: 03/11/23 20:42 Dose: 50 mg Trazodone HCl (Trazodone Hcl 100 Mg Tablet) 100 mg PO BEDTIME [facility] Last Admin: 03/11/23 20:42 Dose: 100 mg Allergies Allergies Allergy/AdvReac Type Severity Reaction Status Date / Time No Known Allergies Allergy Verified 02/27/23 21:41 Assessment & Plan Assessment & Plan (1) Depression: Status: Acute Code(s): F32.A - Depression, unspecified Assessment and Plan: 03/06 doing better with this (2) HIV antibody positive: Status: Acute Code(s): Z21 - Asymptomatic human immunodeficiency virus [HIV] infection status Assessment and Plan: Confirmatory testing is pending. I cant find record of medications or results of HIV CD4 count or viral load from [place] (3) Alcohol dependence: Status: Acute Code(s): F10.20 - Alcohol dependence, uncomplicated Assessment and Plan: ? ciwa dced but bp inc, however pulse stable.. (4) Vasovagal syncope: Status: Acute Code(s): R55 - Syncope and collapse Plan 1) HTN - per fabrice, observe for now and restart lisinopril 5 if indicated moving forward. recent HTN likely related to alcohol withdrawal. treat accordingly. 03/02 lisinopril 10 restarted due to continued elevated BP. 2) renal impairment - trend, keep in mind in making Rx decisions 3) mood - restarted prozac and trazodone 03/01 -03/02. no information presented supportive of bipolar or psychotic Dx. eval for PTSD. 4) HIV - screen positive 03/01. pt reports having been told in the she was HIV +, never treated. ID consult placed for eval/Tx. 03/03: Patient reports having some depression but low anxiety ; pt stated, I feel like the meds are helping . Pt denies SI/HI/VH/AH. attending groups. Continue current tx plan. Infection disease consult: Check CD4 count and viral load. Consider resistance screening. Obtain records from [place]. She should follow with [facility] on discharge [facility] program and call Татьяна Tsai RN at [phone] to set up care per her request. 03/04: Guarded. Pt stated, my depression is down. I'm always concerned about something. I'm worried about how long I will be here . Pt denies SI/HI/VH/AH. keeping to self. Continue current tx plan. 03/05: keeping to self. Pt stated, I'm feeling tired. I got a lot on my mind and about my situation. I'm not having any craving to drink . denies SI/HI/VH/AH. Continue current tx plan. waiting on lab results. 03/06 ongoing issues with bp today requiring clonidine 2 x and I added lorazepam x1 - may need to reconsult hospitalist re stabilizing bp as lisinopril 10mg bid 03/07 - seen by hospitalist and signed off will continue to follow if needed but bp back in range- mood improved- 03/08/23 - CTP 03/09: BP meds have been escalated, now lisinopril 20 mg BID, norvasc 10 mg daily. mood improved, feeling ready for discharge. aftercare planning underway, will DC once adequate plan in place. 03/10: BP appears somewhat labile. continue to follow and adjust as indicated. remains stable, awaiting insurance coverage for adequate DC planning. 03/11: non-labile, more verbal and engaged today, reflecting on increasing awareness of nexus between her traumatic past, her drinking, and her present psychiatric symptoms. add clonidine 0.05 mg TID for anxiety/BP. plan to taper other anti-HTN as needed. 03/12: stable. DC morning clonidine 2/2 sedation, continue with anoon and HS doses. sleeping well, no nightmares. continue current mgmt. Reason for continued inpatient stay Substantial Risk for: inability to function and rapid decompensation Time Spent With Patient Time: Total time managing care of this patient today __25__ minutes.
[2023-03-12 15:15] VITALS: BP 116/69; PULSE 63; RESP 16
[2023-03-12 20:55] VITALS: BP 126/68; PULSE 61; RESP 18; TEMP 36.7; O2SAT 98
[2023-03-12] MEDS: Acetaminophen 325 MG TABLET 650 MG PO (21:09)
[2023-03-13 06:00] VITALS: BP 150/72; PULSE 58; RESP 18; TEMP 36.4; O2SAT 98
--- NOTE | 2023-03-13 07:14 | PM.EVENT ---
Event Note Date of Service: 03/13/23 Event Note: blood pressures controlled. Continue current regimen. Signing off at this time./ Please do not hesitate to reach out with questions or concerns. Time Spent With Patient Time: Total time managing care of this patient today ____ minutes.
[2023-03-13] MEDS: Bictegrav/Emtricit/Tenofov Ala TABLET 1 TAB PO (09:38)
[2023-03-13] MEDS: Multivitamin TABLET 1 TAB PO (09:38)
--- NOTE | 2023-03-13 12:28 | HO.PSYCHPN ---
Subjective Subjective Date of Service: 03/13/23 Reason For Visit: si/ alcohol Medical Problems Affecting Mental Status: No Interim History: met with patient. Discussed Nursing. Chart reviewed. Doing well. Insurance challenges. Patient reports overall feeling much better compared to when she 1st came into the hospital. Eager for discharge. Insurance challenges given relocation from [place]. Very motivated for outpatient care and appreciating that having insurance will be really important in securing outpatient follow-up. Overall euthymic. Some anxiety in the context of difficulty unit milieu. Sleep okay. No med concerns. No alcohol cravings. Medication Compliance: Yes Side effects from medications: No Attending Groups: Intermittent Review of Systems Acute medical concerns: No Review of Systems Review of Systems Yes all other systems are reviewed and are negative Mental Status Exam Mental Status Exam Narrative: Pleasant. Engaged. Appropriate presented. Fair hygiene. circumstantial at times, otherwise organized. euthymic. No SI. No HI. No agitation. No psychosis. Insight and Diagnostics Vital Signs (24Hr): Vital Signs - 24 hr 03/12/23 15:15 03/12/23 20:55 03/13/23 06:00 Temperature 98.1 F 97.6 F Pulse Rate 63 61 58 Respiratory Rate 16 18 18 Blood Pressure 116/69 126/68 150/72 H Pulse Oximetry 98 98 Oxygen Delivery Method Room Air Room Air BMI result Body Mass Index 24.2 Labs 02/27/23 22:47 02/28/23 08:53 Medications Medications Current Medications Acetaminophen (Acetaminophen 325 Mg Tablet) 650 mg PO Q6H PRN PRN Reason: Headache/Pain Mild Scale (1-3) Last Admin: 03/12/23 21:09 Dose: 650 mg Al Hydroxide/Mg Hydroxide (Magnesium Hydrox/Alum Hydrox 30 Ml Oral.Susp) 30 ml PO Q6H PRN PRN Reason: Heartburn/Nausea Amlodipine Besylate (Amlodipine Besylate 10 Mg Tablet) 10 mg PO BEDTIME [facility]; Protocol Last Admin: 03/12/23 21:09 Dose: 10 mg Bictegravir/Emtricitabine/Tenofovir (Bictegrav/Emtricit/Tenofov Ala Tablet) 1 tab PO DAILY [facility] Last Admin: 03/13/23 09:38 Dose: 1 tab Clonidine HCl (Clonidine Hcl 0.1 Mg Tablet) 0.05 mg PO BID@1500,2100 [facility]; Protocol Last Admin: 03/12/23 21:09 Dose: 0.05 mg Fluoxetine HCl (Fluoxetine Hcl 20 Mg Capsule) 40 mg PO DAILY [facility] Last Admin: 03/13/23 09:38 Dose: 40 mg Fluticasone Propionate (Fluticasone Propionate Nasal 16 Gm [place]) 1 spray NOSTRIL-B BID PRN PRN Reason: nasal/sinus congestion Last Admin: 03/13/23 09:43 Dose: 1 spray Hydrochlorothiazide (Hydrochlorothiazide 12.5 Mg Tablet) 12.5 mg PO DAILY [facility]; Protocol Last Admin: 03/13/23 09:38 Dose: 12.5 mg Hydroxyzine HCl (Hydroxyzine Hcl 25 Mg Tablet) 25 mg PO Q6H PRN PRN Reason: Anxiety Last Admin: 03/10/23 05:26 Dose: 25 mg Lisinopril (Lisinopril 20 Mg Tablet) 20 mg PO BID [facility]; Protocol Last Admin: 03/13/23 09:38 Dose: 20 mg Loratadine (Loratadine 10 Mg Tablet) 10 mg PO DAILY [facility] Last Admin: 03/13/23 10:18 Dose: Not Given Magnesium Hydroxide (Milk Of Magnesia 30 Ml Oral.Susp) 30 ml PO DAILY PRN PRN Reason: Constipation Last Admin: 03/12/23 12:07 Dose: 30 ml Magnesium Hydroxide (Milk Of Magnesia 30 Ml Oral.Susp) 30 ml PO DAILY PRN PRN Reason: constipation Multivitamins/Vitamin C (Multivitamin Tablet) 1 tab PO DAILY [facility] Last Admin: 03/13/23 09:38 Dose: 1 tab Naltrexone HCl (Naltrexone Hcl 50 Mg Tablet) 50 mg PO DAILY [facility] Last Admin: 03/13/23 09:38 Dose: 50 mg Nicotine Polacrilex (Nicotine Polacrilex 2 Mg Gum) 4 mg BUCCAL Q2H PRN PRN Reason: Nicotine Cravings Ondansetron HCl (Ondansetron Odt 4 Mg Tab.Rapdis) 4 mg TRANSLINGU Q6H PRN PRN Reason: Nausea Tetrahydrozoline HCl (Tetrahydrozoline Hcl 0.05% Oph 15 Ml Drpbtl) 1 drop EYE-BOTH QID PRN PRN Reason: Dry Eyes Last Admin: 03/13/23 09:43 Dose: 1 drop Trazodone HCl (Trazodone Hcl 50 Mg Tablet) 50 mg PO BEDTIME MRX1 PRN PRN Reason: Insomnia Last Admin: 03/12/23 21:10 Dose: 50 mg Trazodone HCl (Trazodone Hcl 100 Mg Tablet) 100 mg PO BEDTIME [facility] Last Admin: 03/12/23 21:10 Dose: 100 mg Allergies Allergies Allergy/AdvReac Type Severity Reaction Status Date / Time No Known Allergies Allergy Verified 02/27/23 21:41 Assessment & Plan Assessment & Plan (1) Depression: Status: Acute Code(s): F32.A - Depression, unspecified Assessment and Plan: 03/06 doing better with this (2) HIV antibody positive: Status: Acute Code(s): Z21 - Asymptomatic human immunodeficiency virus [HIV] infection status Assessment and Plan: Confirmatory testing is pending. I cant find record of medications or results of HIV CD4 count or viral load from [place] (3) Alcohol dependence: Status: Acute Code(s): F10.20 - Alcohol dependence, uncomplicated Assessment and Plan: ? ciwa dced but bp inc, however pulse stable.. (4) Vasovagal syncope: Status: Acute Code(s): R55 - Syncope and collapse Plan 1) HTN - per fabrice, observe for now and restart lisinopril 5 if indicated moving forward. recent HTN likely related to alcohol withdrawal. treat accordingly. 03/02 lisinopril 10 restarted due to continued elevated BP. 2) renal impairment - trend, keep in mind in making Rx decisions 3) mood - restarted prozac and trazodone 03/01 -03/02. no information presented supportive of bipolar or psychotic Dx. eval for PTSD. 4) HIV - screen positive 03/01. pt reports having been told in the 90s she was HIV +, never treated. ID consult placed for eval/Tx. 03/03: Patient reports having some depression but low anxiety ; pt stated, I feel like the meds are helping . Pt denies SI/HI/VH/AH. attending groups. Continue current tx plan. Infection disease consult: Check CD4 count and viral load. Consider resistance screening. Obtain records from [place]. She should follow with [facility] on discharge [facility] program and call Татьяна Tsai RN at [phone] to set up care per her request. 03/04: Guarded. Pt stated, my depression is down. I'm always concerned about something. I'm worried about how long I will be here . Pt denies SI/HI/VH/AH. keeping to self. Continue current tx plan. 03/05: keeping to self. Pt stated, I'm feeling tired. I got a lot on my mind and about my situation. I'm not having any craving to drink . denies SI/HI/VH/AH. Continue current tx plan. waiting on lab results. 03/06 ongoing issues with bp today requiring clonidine 2 x and I added lorazepam x1 - may need to reconsult hospitalist re stabilizing bp as lisinopril 10mg bid 03/07 - seen by hospitalist and signed off will continue to follow if needed but bp back in range- mood improved- 03/08/23 - CTP 03/09: BP meds have been escalated, now lisinopril 20 mg BID, norvasc 10 mg daily. mood improved, feeling ready for discharge. aftercare planning underway, will DC once adequate plan in place. 03/10: BP appears somewhat labile. continue to follow and adjust as indicated. remains stable, awaiting insurance coverage for adequate DC planning. 03/11: non-labile, more verbal and engaged today, reflecting on increasing awareness of nexus between her traumatic past, her drinking, and her present psychiatric symptoms. add clonidine 0.05 mg TID for anxiety/BP. plan to taper other anti-HTN as needed. 03/12: stable. DC morning clonidine 2/2 sedation, continue with anoon and HS doses. sleeping well, no nightmares. continue current mgmt. 03/13/2023: No changes Reason for continued inpatient stay Substantial Risk for: rapid decompensation Time Spent With Patient Time: Total time managing care of this patient today ____ minutes.
[2023-03-13 19:54] VITALS: BP 140/78; PULSE 88; RESP 16; TEMP 36.6; O2SAT 97
[2023-03-14 06:00] VITALS: BP 127/69; PULSE 56; RESP 14; TEMP 36.6; O2SAT 97
[2023-03-14] MEDS: Bictegrav/Emtricit/Tenofov Ala TABLET 1 TAB PO (09:28)
--- NOTE | 2023-03-14 11:28 | HO.PSYCHPN ---
Subjective Subjective Date of Service: 03/14/23 Reason For Visit: si/ alcohol Medical Problems Affecting Mental Status: No Interim History: met with patient. Discussed Nursing. Chart reviewed. Doing well. Patient reports overall feeling much better compared to when she 1st came into the hospital. Reviewed patient's notebook, her thoughts and questions she had. Eager for discharge. Very motivated for outpatient care and appreciating that having insurance will be really important in securing outpatient follow-up. Overall euthymic. Some anxiety in the context of difficulty unit milieu. Sleep okay. No med concerns. No alcohol cravings. Medication Compliance: Yes Side effects from medications: No Attending Groups: Yes Review of Systems Acute medical concerns: No Review of Systems Review of Systems Yes all other systems are reviewed and are negative Mental Status Exam Mental Status Exam Narrative: Pleasant. Engaged. Appropriate presented. Fair hygiene. circumstantial at times, otherwise organized. euthymic. No SI. No HI. No agitation. No psychosis. [facility] Diagn[facility] Vital Signs (24Hr): Vital Signs - 24 hr 03/13/23 19:54 03/14/23 06:00 Temperature 97.8 F 97.8 F Pulse Rate 88 56 Respiratory Rate 16 14 Blood Pressure 140/78 H 127/69 Pulse Oximetry 97 97 Oxygen Delivery Method Room Air Room Air BMI result Body Mass Index 24.2 Labs 02/27/23 22:47 02/28/23 08:53 Medications Medications Current Medications Acetaminophen (Acetaminophen 325 Mg Tablet) 650 mg PO Q6H PRN PRN Reason: Headache/Pain Mild Scale (1-3) Last Admin: 03/12/23 21:09 Dose: 650 mg Al Hydroxide/Mg Hydroxide (Magnesium Hydrox/Alum Hydrox 30 Ml Oral.Susp) 30 ml PO Q6H PRN PRN Reason: Heartburn/Nausea Amlodipine Besylate (Amlodipine Besylate 10 Mg Tablet) 10 mg PO BEDTIME [facility]; Protocol Last Admin: 03/13/23 20:23 Dose: 10 mg Bictegravir/Emtricitabine/Tenofovir (Bictegrav/Emtricit/Tenofov Ala Tablet) 1 tab PO DAILY [facility] Last Admin: 03/14/23 09:28 Dose: 1 tab Clonidine HCl (Clonidine Hcl 0.1 Mg Tablet) 0.05 mg PO BID@1500,2100 [facility]; Protocol Last Admin: 03/13/23 20:23 Dose: 0.05 mg Fluoxetine HCl (Fluoxetine Hcl 20 Mg Capsule) 40 mg PO DAILY [facility] Last Admin: 03/14/23 09:28 Dose: 40 mg Fluticasone Propionate (Fluticasone Propionate Nasal 16 Gm [place]) 1 spray NOSTRIL-B BID PRN PRN Reason: nasal/sinus congestion Last Admin: 03/14/23 09:31 Dose: 1 spray Hydrochlorothiazide (Hydrochlorothiazide 12.5 Mg Tablet) 12.5 mg PO DAILY [facility]; Protocol Last Admin: 03/14/23 09:28 Dose: 12.5 mg Hydroxyzine HCl (Hydroxyzine Hcl 25 Mg Tablet) 25 mg PO Q6H PRN PRN Reason: Anxiety Last Admin: 03/10/23 05:26 Dose: 25 mg Lisinopril (Lisinopril 20 Mg Tablet) 20 mg PO BID [facility]; Protocol Last Admin: 03/14/23 09:28 Dose: 20 mg Loratadine (Loratadine 10 Mg Tablet) 10 mg PO DAILY [facility] Last Admin: 03/14/23 09:29 Dose: Not Given Magnesium Hydroxide (Milk Of Magnesia 30 Ml Oral.Susp) 30 ml PO DAILY PRN PRN Reason: Constipation Last Admin: 03/12/23 12:07 Dose: 30 ml Magnesium Hydroxide (Milk Of Magnesia 30 Ml Oral.Susp) 30 ml PO DAILY PRN PRN Reason: constipation Multivitamins/Vitamin C (Multivitamin Tablet) 1 tab PO DAILY [facility] Last Admin: 03/14/23 09:28 Dose: 1 tab Naltrexone HCl (Naltrexone Hcl 50 Mg Tablet) 50 mg PO DAILY [facility] Last Admin: 03/14/23 09:28 Dose: 50 mg Nicotine Polacrilex (Nicotine Polacrilex 2 Mg Gum) 4 mg BUCCAL Q2H PRN PRN Reason: Nicotine Cravings Ondansetron HCl (Ondansetron Odt 4 Mg Tab.Rapdis) 4 mg TRANSLINGU Q6H PRN PRN Reason: Nausea Tetrahydrozoline HCl (Tetrahydrozoline Hcl 0.05% Oph 15 Ml Drpbtl) 1 drop EYE-BOTH QID PRN PRN Reason: Dry Eyes Last Admin: 03/14/23 09:31 Dose: 1 drop Trazodone HCl (Trazodone Hcl 50 Mg Tablet) 50 mg PO BEDTIME MRX1 PRN PRN Reason: Insomnia Last Admin: 03/13/23 20:26 Dose: 50 mg Trazodone HCl (Trazodone Hcl 100 Mg Tablet) 100 mg PO BEDTIME [facility] Last Admin: 03/13/23 20:24 Dose: 100 mg Allergies Allergies Allergy/AdvReac Type Severity Reaction Status Date / Time No Known Allergies Allergy Verified 02/27/23 21:41 Assessment & Plan Assessment & Plan (1) Depression: Status: Acute Code(s): F32.A - Depression, unspecified Assessment and Plan: 03/06 doing better with this (2) HIV antibody positive: Status: Acute Code(s): Z21 - Asymptomatic human immunodeficiency virus [HIV] infection status Assessment and Plan: Confirmatory testing is pending. I cant find record of medications or results of HIV CD4 count or viral load from [place] (3) Alcohol dependence: Status: Acute Code(s): F10.20 - Alcohol dependence, uncomplicated Assessment and Plan: ? ciwa dced but bp inc, however pulse stable.. (4) Vasovagal syncope: Status: Acute Code(s): R55 - Syncope and collapse Plan 1) HTN - per fabrice, observe for now and restart lisinopril 5 if indicated moving forward. recent HTN likely related to alcohol withdrawal. treat accordingly. 03/02 lisinopril 10 restarted due to continued elevated BP. 2) renal impairment - trend, keep in mind in making Rx decisions 3) mood - restarted prozac and trazodone 03/01 -03/02. no information presented supportive of bipolar or psychotic Dx. eval for PTSD. 4) HIV - screen positive 03/01. pt reports having been told in the 90s she was HIV +, never treated. ID consult placed for eval/Tx. 03/03: Patient reports having some depression but low anxiety ; pt stated, I feel like the meds are helping . Pt denies SI/HI/VH/AH. attending groups. Continue current tx plan. Infection disease consult: Check CD4 count and viral load. Consider resistance screening. Obtain records from [place]. She should follow with [facility] on discharge [facility] program and call Татьяна Tsai RN at [phone] to set up care per her request. 03/04: Guarded. Pt stated, my depression is down. I'm always concerned about something. I'm worried about how long I will be here . Pt denies SI/HI/VH/AH. keeping to self. Continue current tx plan. 03/05: keeping to self. Pt stated, I'm feeling tired. I got a lot on my mind and about my situation. I'm not having any craving to drink . denies SI/HI/VH/AH. Continue current tx plan. waiting on lab results. 03/06 ongoing issues with bp today requiring clonidine 2 x and I added lorazepam x1 - may need to reconsult hospitalist re stabilizing bp as lisinopril 10mg bid 03/07 - seen by hospitalist and signed off will continue to follow if needed but bp back in range- mood improved- 03/08/23 - CTP 03/09: BP meds have been escalated, now lisinopril 20 mg BID, norvasc 10 mg daily. mood improved, feeling ready for discharge. aftercare planning underway, will DC once adequate plan in place. 03/10: BP appears somewhat labile. continue to follow and adjust as indicated. remains stable, awaiting insurance coverage for adequate DC planning. 03/11: non-labile, more verbal and engaged today, reflecting on increasing awareness of nexus between her traumatic past, her drinking, and her present psychiatric symptoms. add clonidine 0.05 mg TID for anxiety/BP. plan to taper other anti-HTN as needed. 03/12: stable. DC morning clonidine 2/2 sedation, continue with anoon and HS doses. sleeping well, no nightmares. continue current mgmt. 03/13/2023: No changes 03/14/2023: No changes to current plan Reason for continued inpatient stay Substantial Risk for: rapid decompensation Time Spent With Patient Time: Total time managing care of this patient today ____ minutes.
[2023-03-14 20:00] VITALS: BP 141/70; PULSE 63; RESP 16; TEMP 37; O2SAT 97
[2023-03-15 07:25] VITALS: BP 154/73; PULSE 56; RESP 18; TEMP 36.7; O2SAT 97
[2023-03-15] MEDS: Bictegrav/Emtricit/Tenofov Ala TABLET 1 TAB PO (08:33)
--- NOTE | 2023-03-15 13:59 | HO.PSYCHPN ---
Subjective Subjective Date of Service: 03/15/23 Reason For Visit: si/ alcohol Interim History: meds kicking in, getting a lot out of groups. positive change talk and attitude. wants to wait until aftercare in place prior to discharge, discuss possible discharge for weds. per staff, no issues of concern. c/o dry eyes and mouth, constipation, stopped taking claritin. Mental Status Exam Mental Status Exam Narrative: calm, cooperative. no PMA/PMR. speech nml rate, amount, loudness, tone, latency. thoughts linear and logical. affect flexible, normo-intense, non-labile. mood improved. no SI/SIBI/HI/AVH expressed. Diagnostics Vital Signs (24Hr): Vital Signs - 24 hr 03/14/23 20:00 03/15/23 07:25 Temperature 98.6 F 98.1 F Pulse Rate 63 56 Respiratory Rate 16 18 Blood Pressure 141/70 H 154/73 H Pulse Oximetry 97 97 Oxygen Delivery Method Room Air Baron Room Air BMI result Body Mass Index 24.2 Labs 02/27/23 22:47 02/28/23 08:53 Medications Medications Current Medications Acetaminophen (Acetaminophen 325 Mg Tablet) 650 mg PO Q6H PRN PRN Reason: Headache/Pain Mild Scale (1-3) Last Admin: 03/12/23 21:09 Dose: 650 mg Al Hydroxide/Mg Hydroxide (Magnesium Hydrox/Alum Hydrox 30 Ml Oral.Susp) 30 ml PO Q6H PRN PRN Reason: Heartburn/Nausea Amlodipine Besylate (Amlodipine Besylate 10 Mg Tablet) 10 mg PO BEDTIME [facility]; Protocol Last Admin: 03/14/23 20:43 Dose: 10 mg Bictegravir/Emtricitabine/Tenofovir (Bictegrav/Emtricit/Tenofov Ala Tablet) 1 tab PO DAILY [facility] Last Admin: 03/15/23 08:33 Dose: 1 tab Clonidine HCl (Clonidine Hcl 0.1 Mg Tablet) 0.05 mg PO BID@1500,2100 [facility]; Protocol Last Admin: 03/14/23 20:12 Dose: 0.05 mg Fluoxetine HCl (Fluoxetine Hcl 20 Mg Capsule) 40 mg PO DAILY [facility] Last Admin: 03/15/23 08:33 Dose: 40 mg Fluticasone Propionate (Fluticasone Propionate Nasal 16 Gm [place]) 1 spray NOSTRIL-B BID PRN PRN Reason: nasal/sinus congestion Last Admin: 03/15/23 08:33 Dose: 1 spray Hydrochlorothiazide (Hydrochlorothiazide 12.5 Mg Tablet) 12.5 mg PO DAILY [facility]; Protocol Last Admin: 03/15/23 08:33 Dose: 12.5 mg Hydroxyzine HCl (Hydroxyzine Hcl 25 Mg Tablet) 25 mg PO Q6H PRN PRN Reason: Anxiety Last Admin: 03/10/23 05:26 Dose: 25 mg Lisinopril (Lisinopril 20 Mg Tablet) 20 mg PO BID [facility]; Protocol Last Admin: 03/15/23 08:34 Dose: 20 mg Loratadine (Loratadine 10 Mg Tablet) 10 mg PO DAILY [facility] Last Admin: 03/15/23 08:34 Dose: Not Given Magnesium Hydroxide (Milk Of Magnesia 30 Ml Oral.Susp) 30 ml PO DAILY PRN PRN Reason: Constipation Last Admin: 03/12/23 12:07 Dose: 30 ml Magnesium Hydroxide (Milk Of Magnesia 30 Ml Oral.Susp) 30 ml PO DAILY PRN PRN Reason: constipation Multivitamins/Vitamin C (Multivitamin Tablet) 1 tab PO DAILY [facility] Last Admin: 03/15/23 08:34 Dose: 1 tab Naltrexone HCl (Naltrexone Hcl 50 Mg Tablet) 50 mg PO DAILY [facility] Last Admin: 03/15/23 08:34 Dose: 50 mg Nicotine Polacrilex (Nicotine Polacrilex 2 Mg Gum) 4 mg BUCCAL Q2H PRN PRN Reason: Nicotine Cravings Ondansetron HCl (Ondansetron Odt 4 Mg Tab.Rapdis) 4 mg TRANSLINGU Q6H PRN PRN Reason: Nausea Tetrahydrozoline HCl (Tetrahydrozoline Hcl 0.05% Oph 15 Ml Drpbtl) 1 drop EYE-BOTH QID PRN PRN Reason: Dry Eyes Last Admin: 03/15/23 08:33 Dose: 1 drop Trazodone HCl (Trazodone Hcl 50 Mg Tablet) 50 mg PO BEDTIME MRX1 PRN PRN Reason: Insomnia Last Admin: 03/14/23 20:13 Dose: 50 mg Trazodone HCl (Trazodone Hcl 100 Mg Tablet) 100 mg PO BEDTIME [facility] Last Admin: 03/14/23 20:09 Dose: 100 mg Allergies Allergies Allergy/AdvReac Type Severity Reaction Status Date / Time No Known Allergies Allergy Verified 02/27/23 21:41 Assessment & Plan Assessment & Plan (1) Depression: Status: Acute Code(s): F32.A - Depression, unspecified Assessment and Plan: 03/06 doing better with this (2) HIV antibody positive: Status: Acute Code(s): Z21 - Asymptomatic human immunodeficiency virus [HIV] infection status Assessment and Plan: Confirmatory testing is pending. I cant find record of medications or results of HIV CD4 count or viral load from [place] (3) Alcohol dependence: Status: Acute Code(s): F10.20 - Alcohol dependence, uncomplicated Assessment and Plan: ? ciwa dced but bp inc, however pulse stable.. (4) Vasovagal syncope: Status: Acute Code(s): R55 - Syncope and collapse Plan 1) HTN - per fabrice, observe for now and restart lisinopril 5 if indicated moving forward. recent HTN likely related to alcohol withdrawal. treat accordingly. 03/02 lisinopril 10 restarted due to continued elevated BP. 2) renal impairment - trend, keep in mind in making Rx decisions 3) mood - restarted prozac and trazodone 03/01 -03/02. no information presented supportive of bipolar or psychotic Dx. eval for PTSD. 4) HIV - screen positive 03/01. pt reports having been told in the 90 she was HIV +, never treated. ID consult placed for eval/Tx. 03/03: Patient reports having some depression but low anxiety ; pt stated, I feel like the meds are helping . Pt denies SI/HI/VH/AH. attending groups. Continue current tx plan. Infection disease consult: Check CD4 count and viral load. Consider resistance screening. Obtain records from [place]. She should follow with [facility] on discharge [facility] program and call Татьяна Tsai RN at [phone] to set up care per her request. 03/04: Guarded. Pt stated, my depression is down. I'm always concerned about something. I'm worried about how long I will be here . Pt denies SI/HI/VH/AH. keeping to self. Continue current tx plan. 03/05: keeping to self. Pt stated, I'm feeling tired. I got a lot on my mind and about my situation. I'm not having any craving to drink . denies SI/HI/VH/AH. Continue current tx plan. waiting on lab results. 03/06 ongoing issues with bp today requiring clonidine 2 x and I added lorazepam x1 - may need to reconsult hospitalist re stabilizing bp as lisinopril 10mg bid 03/07 - seen by hospitalist and signed off will continue to follow if needed but bp back in range- mood improved- 03/08/23 - CTP 03/09: BP meds have been escalated, now lisinopril 20 mg BID, norvasc 10 mg daily. mood improved, feeling ready for discharge. aftercare planning underway, will DC once adequate plan in place. 03/10: BP appears somewhat labile. continue to follow and adjust as indicated. remains stable, awaiting insurance coverage for adequate DC planning. 03/11: non-labile, more verbal and engaged today, reflecting on increasing awareness of nexus between her traumatic past, her drinking, and her present psychiatric symptoms. add clonidine 0.05 mg TID for anxiety/BP. plan to taper other anti-HTN as needed. 03/12: stable. DC morning clonidine 2/2 sedation, continue with anoon and HS doses. sleeping well, no nightmares. continue current mgmt. 03/13/2023: No changes 03/14/2023: No changes to current plan 03/15: improving mood, positive attitude. awaiting insurance, then will arrange aftercare and DC. Reason for continued inpatient stay Substantial Risk for: inability to function and rapid decompensation Time Spent With Patient Time: Total time managing care of this patient today __25__ minutes.
[2023-03-15 20:30] VITALS: BP 143/79; PULSE 65; RESP 16; TEMP 36.6; O2SAT 95
[2023-03-15] MEDS: amLODIPine Besylate 10 MG TABLET PO (20:37)
[2023-03-15] MEDS: traZODone HCL 100 MG TABLET PO (20:37)
[2023-03-15] MEDS: cloNIDine HCL 0.1 MG TABLET 0.05 MG PO (20:37)
[2023-03-15] MEDS: lisinopriL 20 MG TABLET PO (20:37)
[2023-03-15] MEDS: Tetrahydrozoline HCl 0.05% Oph 15 ML DRPBTL 1 DROP EYE-BOTH (20:38)
[2023-03-15] MEDS: traZODone HCL 50 MG TABLET PO (20:41)
[2023-03-16 03:25] VITALS: BP 129/74; PULSE 61; RESP 16
[2023-03-16] MEDS: Acetaminophen 325 MG TABLET 650 MG PO (03:29)
[2023-03-16 07:25] VITALS: BP 123/61; PULSE 64; RESP 16; TEMP 36.9; O2SAT 96
[2023-03-16] MEDS: Bictegrav/Emtricit/Tenofov Ala TABLET 1 TAB PO (09:19)
[2023-03-16] MEDS: FLUoxetine HCl 20 MG CAPSULE 40 MG PO (09:19)
[2023-03-16] MEDS: Naltrexone HCl 50 MG TABLET PO (09:20)
[2023-03-16] MEDS: Loratadine 10 MG TABLET PO (09:20)
[2023-03-16] MEDS: hydroCHLOROthiazide 12.5 MG TABLET PO (09:20)
[2023-03-16] MEDS: lisinopriL 20 MG TABLET PO ×2 (09:20→21:48)
[2023-03-16] MEDS: Multivitamin TABLET 1 TAB PO (09:21)
--- NOTE | 2023-03-16 11:56 | PM.PSYDC ---
DS: Providers Provider Date of Service: 03/16/23 Date of admission: 02/28/23 22:28 Primary care physician: Unknown Physician Consults: 03/01/23 07:56 Consult to Hospitalist Routine Comment: Consulting Provider: Hospitalist Reason For Exam: elevated bp 03/02/23 12:17 Consult to Infectious Diseases Routine Consulting Provider: [facility] Infectious Disease Reason for consultation: HIV+ since 90s, no Tx. please eval and treat. Has provider been notified: No DS: Diagnosis Discharge Diagnosis (1) Depression: Status: Acute (2) HIV antibody positive: Status: Acute (3) Alcohol dependence: Status: Acute (4) Vasovagal syncope: Status: Acute DS: Medications Discharge Medications Home Medications: Previous Rx's Medication Instructions Recorded amlodipine 10 mg tablet 10 mg PO BEDTIME 30 days #30 tabs 03/16/23 bictegravir 50 mg-emtricitabine 1 tab PO DAILY 30 days #30 tabs 03/16/23 200 mg-tenofovir alafenam 25 mg tablet (Biktarvy) clonidine HCl 0.1 mg tablet 0.05 mg PO BID@1500,2100 30 days 03/16/23 #60 tabs fluoxetine 20 mg capsule 40 mg (2 x 20 mg) PO DAILY 30 days 03/16/23 #60 caps fluticasone propionate 50 1 spray intranasal BID PRN 03/16/23 mcg/actuation nasal nasal/sinus congestion 30 days #1 spray,suspension inhaler hydrochlorothiazide 12.5 mg tablet 12.5 mg PO DAILY 30 days #30 tabs 03/16/23 lisinopril 20 mg tablet 20 mg PO BID 30 days #60 tabs 03/16/23 multivitamin (Daily-Lauren tablet) 1 tab PO DAILY 30 days #30 tabs 03/16/23 naltrexone 50 mg tablet 50 mg PO DAILY 30 days #30 tabs 03/16/23 tetrahydrozoline 0.05 % eye drops 1 drp ophthalmic (eye) QID PRN Dry 03/16/23 (Eye Drops (tetrahydrozoline)) Eyes 30 days #30 mL trazodone 100 mg tablet 150 mg (1.5 x 100 mg) PO BEDTIME 03/16/23 30 days #45 tabs Mental Status Exam Mental Status Exam Narrative: calm, cooperative. no PMA/PMR. speech nml rate, amount, loudness, tone, latency. thoughts linear and logical. affect flexible, normo-intense, non-labile. mood comfortable, calm. no SI/SIBI/HI/AVH. Data Data Completed and Pending Completed studies during hospitalization [Text1]: 03/01/23 03/03/23 15:13 20:07 Lymphocyte Subset Cmmnt TNP HIV-1 Antibody POSITIVE (Abnormal) HIV-1 RNA, Qual (TMA) TNP HIV-2 Antibody NEGATIVE DS: Summary Time Spent with Patient Time attestation: Total time managing care of this patient today ____ minutes. Discharge Plan Discharge Anticipated Discharge Date/Time: 03/17/23 10:45 Patient Disposition: Home, Self-Care Discharge Diagnosis: Depressive Disorder NOS PTSD, Chronic Alcohol Use Disorder HIV+ Referrals: Elda Hirsch (Therapy) [Other] - 03/19/23 11:00 am (IN OFFICE APPOINTMENT -Please arrive fifteen minutes early to your appointment in order to fill out necessary paperwork. ) Edith Yanez (Psychiatry) [Other] - 04/15/23 11:45 am (TELEHEALTH APPOINTMENT -Psychiatric Evaluation ) Edith Yanez (Psychiatry) [Other] - 05/13/23 12:00 pm (TELEHEALTH APPOINTMENT -Medication Management ) Physician,Unknown J [Primary Care Provider] - 1 Week Discharge Medications: New clonidine HCl 0.1 mg Tablet 0.05 mg PO BID@1500,2100 30 Days Qty: 60 0RF Protocol: Hold for SBP< HOLD for SBP < : 90 naltrexone 50 mg Tablet 50 mg PO DAILY 30 Days Qty: 30 0RF tetrahydrozoline [Eye Drops (tetrahydrozoline)] 0.05 % Drops 1 drp ophthalmic (eye) QID PRN (Reason: Dry Eyes) 30 Days Qty: 30 0RF amlodipine 10 mg Tablet 10 mg PO BEDTIME 30 Days Qty: 30 0RF Protocol: Hold for SBP< HOLD for SBP < : 90 fluoxetine 20 mg Capsule 40 mg PO DAILY 30 Days Qty: 60 0RF fluticasone propionate 50 mcg/actuation [place],Suspension 1 spray intranasal BID PRN (Reason: nasal/sinus congestion) 30 Days Qty: 1 0RF hydrochlorothiazide 12.5 mg Tablet 12.5 mg PO DAILY 30 Days Qty: 30 0RF Protocol: Hold for SBP< HOLD for SBP < : 90 Biktarvy 50-200-25 mg Tablet 1 tab PO DAILY 30 Days Qty: 30 0RF multivitamin [Daily-Lauren] Tablet 1 tab PO DAILY 30 Days Qty: 30 0RF Continued lisinopril 20 mg Tablet 20 mg PO BID 30 Days Qty: 60 0RF Changed trazodone 100 mg Tablet 150 mg PO BEDTIME 30 Days Qty: 45 0RF Discontinued fluoxetine capsule 20 mg PO DAILY Discharge Orders: Discharge Order (Routine); Ordered 03/17/23 Ordered By: Juan Diego Damon Diet: Advance to usual diet Activity on Discharge: As tolerated Stand Alone Forms: Patient Portal Discharge page Care Plan Goals: remain safe, sober, and stable in the outpatient treatment setting Health Concerns: HIV+ Plan of Treatment: take medications as prescribed, attend appointments as scheduled Assessment: not at imminent risk of harm to self or others
--- NOTE | 2023-03-16 12:56 | PC.NURSE ---
Call placed to [facility] for appointment with PCP due to relocation to this area. New appointments booking out to November, photographic editor working with other local offices for appointment. [place] [place] office called for follow up appointment message left waiting call back.
[2023-03-16 14:05] LABS: Alanine Aminotransferase 73 U/L (0-31); Albumin Level 4.2 g/dL (3.5-5.0); Alkaline Phosphatase 85 U/L (39-117); Anion Gap 15 (12-20); Aspartate Amino Transferase 40 U/L (5-31); Bilirubin Direct < 0.2 mg/dL (0.0-0.5); Bilirubin Total 0.2 mg/dL (0.0-1.0); Blood Urea Nitrogen 24 mg/dL (9-16); Carbon Dioxide 28 mmol/L (22-29); Chloride 102 mmol/L (96-108); Creatinine Clr Calc Pharmacy 55.9; Estimated Glomerular Filt Rate 48; Glucose Random 105 mg/dL (60-115); Potassium 4.8 mmol/L (3.3-5.1); Sodium 140 mmol/L (135-145); Total Protein 8.5 g/dL (6.5-8.0)
[2023-03-16 14:33] VITALS: BP 129/66; PULSE 60
[2023-03-16] MEDS: cloNIDine HCL 0.1 MG TABLET 0.05 MG PO ×2 (14:37→21:48)
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
--- NOTE | 2023-03-16 15:44 | PC.NURSE ---
Spoke to Татьяна Tsai RN [phone] Appointment scheduled [facility] [address] [facility] Intake 04/01/2023 @ 2pm. She will refer patient for deicer repairer.
[2023-03-16 20:30] VITALS: BP 131/64; PULSE 63; RESP 16; TEMP 37.1; O2SAT 96
[2023-03-16] MEDS: amLODIPine Besylate 10 MG TABLET PO (21:48)
[2023-03-16] MEDS: traZODone HCL 100 MG TABLET PO (21:49)
[2023-03-16] MEDS: Tetrahydrozoline HCl 0.05% Oph 15 ML DRPBTL 1 DROP EYE-BOTH (21:51)
[2023-03-17 06:00] VITALS: BP 137/75; PULSE 71; RESP 16; TEMP 37.2; O2SAT 97
[2023-03-17] MEDS: Tetrahydrozoline HCl 0.05% Oph 15 ML DRPBTL 1 DROP EYE-BOTH (08:34)
[2023-03-17] MEDS: Naltrexone HCl 50 MG TABLET PO (08:35)
[2023-03-17] MEDS: FLUoxetine HCl 20 MG CAPSULE 40 MG PO (08:36)
[2023-03-17] MEDS: hydroCHLOROthiazide 12.5 MG TABLET PO (08:36)
[2023-03-17] MEDS: Bictegrav/Emtricit/Tenofov Ala TABLET 1 TAB PO (08:36)
[2023-03-17] MEDS: lisinopriL 20 MG TABLET PO (08:36)
[2023-03-17] MEDS: Loratadine 10 MG TABLET PO (08:37)
[2023-03-17] MEDS: Multivitamin TABLET 1 TAB PO (08:37)
== END 2023-03-17 11:00 | disposition home or self-care (01) | DRG 881 ==
LOC: HO.ED 02-28 04:57 → HO.PADLT16 02-28 22:38
PROVIDERS: Clinical Nurse Specialist Psychiatric/Mental Health, Adult; Internal Medicine; Psychiatry & Neurology Psychiatry; Student in an Organized Health Care Education/Training Program; Admitting Provider Psychiatry & Neurology Psychiatry; Emergency Provider Internal Medicine; Visit Provider Psychiatry & Neurology Psychiatry
DX: F32.A Depression, unspecified (principal); F10.239 Alcohol dependence with withdrawal, unspecified; Z21 Asymptomatic human immunodeficiency virus [HIV] infection status; F43.12 Post-traumatic stress disorder, chronic; Y90.8 Blood alcohol level of 240 mg/100 ml or more; I10 Essential (primary) hypertension; Z91.148 Patient's other noncompliance with medication regimen for other reason; Z87.891 Personal history of nicotine dependence; Z79.899 Other long term (current) drug therapy
CPT/HCPCS: 36415; 80048; 80053; 80061; 80076; 80307; 82607; 82746; 83036; 83735; 84439; 84443; 84484; 85025; 85610; 86359; 86360; 86701; 86702; 86780; 87389; 87536; 87635; 90686; 93005; 99285; S9485

== ENCOUNTER → 2023-02-27 22:36 | Outpatient (BNV) | payer SELFPAY | PROVIDERS: Emergency Provider Internal Medicine; Visit Provider Internal Medicine Cardiovascular Disease | DX: R94.31 Abnormal electrocardiogram [ECG] [EKG] (principal); R55 Syncope and collapse | CPT/HCPCS: 93010 ==

== ENCOUNTER → 2023-02-28 18:48 | Outpatient (BNV) | payer SELFPAY | PROVIDERS: Admitting Provider Psychiatry & Neurology Psychiatry; Emergency Provider Internal Medicine; Visit Provider Internal Medicine Cardiovascular Disease | DX: R00.1 Bradycardia, unspecified (principal) | CPT/HCPCS: 93010 ==

== ENCOUNTER → 2023-02-28 22:28 | Outpatient (BNV) | payer MEDICARE, SELFPAY | PROVIDERS: Admitting Provider Psychiatry & Neurology Psychiatry; Emergency Provider Internal Medicine; Visit Provider Psychiatry & Neurology Psychiatry | DX: F33.2 Major depressive disorder, recurrent severe without psychotic features (principal); F10.20 Alcohol dependence, uncomplicated; Z21 Asymptomatic human immunodeficiency virus [HIV] infection status; R55 Syncope and collapse | CPT/HCPCS: 90792; 99231; 99232; 99239 ==

== ENCOUNTER → 2023-02-28 22:28 | Outpatient (BNV) | payer MEDICARE, SELFPAY | PROVIDERS: Admitting Provider Psychiatry & Neurology Psychiatry; Emergency Provider Internal Medicine; Visit Provider Internal Medicine | DX: Z21 Asymptomatic human immunodeficiency virus [HIV] infection status (principal); F32.A Depression, unspecified; F10.20 Alcohol dependence, uncomplicated; R55 Syncope and collapse | CPT/HCPCS: 99222 ==

== ENCOUNTER 2023-04-05 09:37 | Outpatient (RCR) | payer MEDICARE, MEDICAID, SELFPAY ==
--- NOTE | 2023-04-06 09:26 | PC.NURSE ---
Monalisa is having transportation issues. She is unable to come to the program at this time until she has things set up. She stated she is new to the area and has a lot to do and is going to call [facility] regarding PT1. She plans on calling the program when she has things in place. She denied any safety issues.
== END 2023-04-05 23:59 | disposition home or self-care (01) ==
LOC: HO.PHPA 09:37
PROVIDERS: Visit Provider Psychiatry & Neurology Psychiatry
DX: F33.1 Major depressive disorder, recurrent, moderate (principal); F43.12 Post-traumatic stress disorder, chronic; F10.20 Alcohol dependence, uncomplicated
CPT/HCPCS: 90791

== ENCOUNTER 2023-06-18 08:44 | Outpatient (REF) | payer MEDICARE, MEDICAID, SELFPAY ==
[2023-06-18 11:35] LABS: Appearance Urine Clear; Color Urine Yellow; Glucose Urine UA Negative (Negative); Leukocyte Esterase Urine Negative (Negative); Nitrite Urine Negative (Negative); Specific Gravity - Urine <= 1.005 (1.005-1.025); Urine Blood Negative (Negative); Urine Ketones Negative (Negative); Urine Protein Negative (Neg-Trace)
[2023-06-18 11:38] LABS: Bacteria Urine None Seen (None Seen); Hyaline Casts Urine 0-2 /LPF (0-2); RBC Urine 0-2 /HPF (0-2); Squamous Epithelial Cell Urine 0-2 /HPF (0-2); WBC Urine 0-5 /HPF (0-5)
[2023-06-18 11:41] LABS: MANUAL DIFF FLAG NO
[2023-06-18 11:53] LABS: Basophils Absolute Auto 0.1 X10*3/uL (0.0-0.2); Eosinophils Absolute Auto 0.1 X10*3/uL (0.0-0.4); Eosinophils Percent Auto 1.4 % (0-4); Hematocrit 35.6 % (37.0-47.0); Hemoglobin 11.5 g/dl (12.0-16.0); Imm Gran Abs Auto 0.01 X10*3/uL (0.00-0.03); Imm Gran Pct Auto 0.2 % (0.0-0.4); Lymphocytes Absolute Auto 2.4 X10*3/uL (1.2-4.9); Mean Corpuscular HGB Conc 32.3 g/dl (31.0-35.0); Mean Corpuscular Volume 86.6 fL (80.0-98.0); Mean Platelet Volume 10.9 fL (9.4-12.3); Monocytes Absolute Auto 0.5 X10*3/uL (0.1-1.2); Monocytes Percent Auto 8.2 % (2-11); Neutrophils Absolute Auto 2.7 x10*3/uL (2.0-8.3); Neutrophils Percent Auto 47.2 % (45-73); Platelet Count 245 X10*3/uL (160-400); Red Blood Count 4.11 X10*6/uL (4.20-5.50); Red Cell Distribution Width 14.9 % (11.0-16.0); White Blood Count 5.7 X10*3/uL (4.8-10.8)
[2023-06-18 12:38] LABS: Estimated Average Glucose 120 mg/dL; HBS Num1 68.65 mIU/mL (0-7.99); HBc Num1 5.25 S/CO (0.00-0.79); HBsAGNum1 0.31 S/CO (0.00-0.99); Hemoglobin A1c % 5.8 % (<6.0); Hepatitis B Surface Antigen Negative (Negative); ~HepC Num1 0.11 S/CO (0.00-0.79); ~Hepatitis B Surface Antibody REACTIVE (Nonreactive); ~Hepatitis C Antibody Nonreactive (Nonreactive)
[2023-06-18 12:43] LABS: Hepatitis A Antibody IgG REACTIVE (Nonreactive); ~Hepatitis A Antibody IgG 10.09 S/CO (0.00-0.99)
[2023-06-18 12:49] LABS: Alanine Aminotransferase 24 U/L (0-31); Alkaline Phosphatase 70 U/L (39-117); Anion Gap 13 (12-20); Aspartate Amino Transferase 22 U/L (5-31); Bilirubin Total 0.5 mg/dL (0.0-1.0); Blood Urea Nitrogen 12 mg/dL (9-16); Calcium 9.1 mg/dL (8.4-10.2); Carbon Dioxide 25 mmol/L (22-29); Chloride 102 mmol/L (96-108); Cholesterol 215 mg/dL (<200); Estimated Glomerular Filt Rate > 60; Glucose Random 90 mg/dL (60-115); HDL Cholesterol 54 mg/dL (>40); LDL Cholesterol Calculated 140 mg/dL (<100); Potassium 4.5 mmol/L (3.3-5.1); Sodium 135 mmol/L (135-145); Total Protein 7.8 g/dL (6.5-8.0); Triglycerides 106 mg/dL (<150)
[2023-06-18 14:06] LABS: Reflex LDLD? No
[2023-06-18 14:46] LABS: HBc Num2 5.27 S/CO; Hepatitis B Core Antibody Reactive (Nonreactive)
[2023-06-20 23:04] LABS: TS Negative Control Passed; TS Panel A 1; TS Panel B 0; TS Positive Control Passed; TSpotTB Negative (Negative)
[2023-06-21 10:04] LABS: Absolute CD3 Count 1893 cells/uL (840-3060); Absolute CD4 Count 792 cells/uL (490-1740); Absolute CD8 Count 1112 cells/uL (180-1170); Absolute Lymphocytes 2296 cells/uL (850-3900); CD4 CD8 Ratio 0.71 (0.86-5.00); Percent CD3 Cells 82 % (57-85); Percent CD4 Cells 34 % (30-61); Percent CD8 Cells 48 % (12-42)
[2023-06-21 11:53] LABS: RPR Rapid Plasma Reagin NON-REACTIVE (NON-REACTIVE)
[2023-06-21 16:33] LABS: Hepatitis B Viral DNA Qn - cp NOT DETECTED Log IU/mL (NOT DETECTED); Hepatitis B Viral DNA Qn-IU/mL NOT DETECTED (NOT DETECTED)
[2023-06-21 22:39] LABS: Mumps Virus IgG Antibody <9.00 AU/mL; Rubella IgG Antibody 6.19 Index; Rubeola IgG (Measles) >300.00 AU/mL
[2023-06-22 06:38] LABS: HIV RNA PCR Qn Copies NOT DETECTED copies/mL (NOT DETECTED); HIV RNA PCR Qn Log Copies NOT DETECTED (NOT DETECTED)
== END 2023-06-18 08:45 | disposition home or self-care (01) ==
LOC: HO.HHCL 08:44
PROVIDERS: Visit Provider Student in an Organized Health Care Education/Training Program
DX: Z13.6 Encounter for screening for cardiovascular disorders (principal); B20 Human immunodeficiency virus [HIV] disease
CPT/HCPCS: 36415; 80053; 80061; 81001; 83036; 85025; 86359; 86360; 86481; 86592; 86704; 86706; 86708; 86735; 86762; 86765; 86803; 87340; 87517; 87536

== ENCOUNTER 2023-06-22 10:22 | Emergency (ER) | payer MEDICARE, MEDICAID, SELFPAY ==
[2023-06-22 11:10] VITALS: BP 184/88; PULSE 62; RESP 16; TEMP 36.7; O2SAT 95; BMI 26.8
--- NOTE | 2023-06-22 11:14 | ED.GENADULT ---
HPI - General Adult General Chief complaint: Headache Stated complaint: High Blood Pressure Time Seen by Provider: 06/22/23 11:20 Source: patient, RN notes reviewed and old records reviewed Mode of arrival: ambulatory Limitations: no limitations History of Present Illness HPI narrative: 62-year-old female with past medical history significant for hypertension, anxiety, depression presents for evaluation ?I ran out of my medications. ? Patient recently moved to this area in February. Her 1st appointment with her new PCP is 10 days from today on 07/02/2023 She takes 4 different medications for blood pressure and has been on these medications for about 2 months She takes lisinopril, amlodipine, hydrochlorothiazide, clonidine Patient complains of a mild headache She denies any chest pain. Other complaints or concerns at this time Related Data Previous Rx's ?Medication ?Instructions ?Recorded amlodipine 10 mg tablet 10 mg PO BEDTIME 30 days #30 tabs 03/16/23 bictegravir 50 mg-emtricitabine 1 tab PO DAILY 30 days #30 tabs 03/16/23 200 mg-tenofovir alafenam 25 mg tablet (Biktarvy) clonidine HCl 0.1 mg tablet 0.05 mg PO BID@1500,2100 30 days 03/16/23 #60 tabs fluoxetine 20 mg capsule 40 mg (2 x 20 mg) PO DAILY 30 days 03/16/23 #60 caps fluticasone propionate 50 1 spray intranasal BID PRN 03/16/23 mcg/actuation nasal nasal/sinus congestion 30 days #1 spray,suspension inhaler hydrochlorothiazide 12.5 mg tablet 12.5 mg PO DAILY 30 days #30 tabs 03/16/23 lisinopril 20 mg tablet 20 mg PO BID 30 days #60 tabs 03/16/23 multivitamin (Daily-Lauren tablet) 1 tab PO DAILY 30 days #30 tabs 03/16/23 naltrexone 50 mg tablet 50 mg PO DAILY 30 days #30 tabs 03/16/23 tetrahydrozoline 0.05 % eye drops 1 drp ophthalmic (eye) QID PRN Dry 03/16/23 (Eye Drops (tetrahydrozoline)) Eyes 30 days #30 mL trazodone 100 mg tablet 150 mg (1.5 x 100 mg) PO BEDTIME 03/16/23 30 days #45 tabs amlodipine 10 mg tablet 10 mg PO DAILY #30 tabs 06/22/23 clonidine HCl 0.1 mg tablet 0.05 mg (1/2 x 0.1 mg) PO BID #30 06/22/23 tabs hydrochlorothiazide 12.5 mg tablet 12.5 mg PO DAILY #30 tabs 06/22/23 lisinopril 20 mg tablet 20 mg PO BID #60 tabs 06/22/23 Allergies Allergy/AdvReac Type Severity Reaction Status Date / Time No Known Allergies Allergy Verified 06/22/23 11:13 Review of Systems Constitutional: Constitutional: Denies body ache(s), Denies chills, Denies fever(s) and Reports headache(s) Eyes: Eyes: Denies blurry vision ENT: Reports headache(s) Cardiovascular: Cardiovascular: Denies chest pain, Denies dyspnea and Denies dyspnea on exertion Respiratory: Respiratory: Denies dyspnea and Denies dyspnea on exertion Gastrointestinal: Gastrointestinal: Denies abdominal pain Integumentary/Breasts: Skin/Breast: Denies rash Neurologic: Reports headache(s) [facility] Past Medical History Medical History (Updated 06/22/23 @ 11:15 by Gadiel Norton) HIV antibody positive Schizophrenia Bipolar 1 disorder Depression Social History Social History Household Members: Family Household Members Other:: Daughter in law and her boyfriend Housing: Apartment Do you presently have visiting nurse or other home services: No Alcohol intake: current Alcohol intake frequency: 3 or more drinks per day Alcohol type: hard liquor Patient Tobacco Use Status: Former Tobacco user Tobacco use type: Cigarette Second Hand Smoke Exposure: No Substance Use Type: Marijuana Advance Directives: No Advance Directives Information Provided: Yes service: No Sexual orientation: Straight/Heterosexual Physical Exam ED Vital Signs: Vital Signs - 24 hr 06/22/23 11:10 06/22/23 11:19 Temperature 98.0 F 98.0 F Pulse Rate 62 62 Respiratory Rate 16 16 Blood Pressure 184/88 H 184/88 H Pulse Oximetry 95 98 Oxygen Delivery Method Room Air Room Air BMI result Body Mass Index 26.8 Const General: healthy appearing, comfortable, no acute distress, alert and awake Nutritional Appearance: well nourished Orientation/consciousness: patient oriented x3 HENMT Head: Yes normocephalic and Yes atraumatic Eyes Eyelids: Yes eyelids normal Conjunctivae: conjunctivae normal Sclerae: sclerae normal Corneas: corneas normal Pupils: Equal, round and reactive pupils present EOM: EOMs intact bilaterally Neck Neck: Yes full ROM Resp Effort & Inspection: normal respiratory effort, able to speak in complete sentences and not labored Skin General skin exam: elasticity normal Neuro General: patient oriented x3 Cranial nerves: Yes CN's II-XII intact bilaterally, Yes Equal, round and reactive pupils present and Yes Bilaterally intact EOM present Cognition (Neuro): normal cognition Extrem Other: Moving all extremities well without any obvious deformities Medical Decision Making Medical Decision Making MDM Narrative: 62-year-old female with past medical history as documented above presents for evaluation medication refill. She does complain of a mild headache. She is neurologically intact. Denies any chest pain, shortness of breath. She is on for several blood pressure medications which will be prescribed for 1 month. She sees her doctor in 10 days. Her blood pressure is elevated today to 184/80, however this is expected as she has been noncompliant with 4 separate antihypertensive medications over the last 2 months. She will be referred to her PCP for follow-up Differential Diagnosis Differential Diagnoses: The differential diagnosis associated with the presentation includes Hypertension High blood pressure Medication noncompliance Acute headache Discharge Plan Discharge Clinical Impression: Hypertension, Encounter for medication refill Patient Disposition: Home, Self-Care Instructions: Hypertension (ED) Additional Instructions: Take all your medications as prescribed. Follow-up with your primary doctor on 07/02/2023 as discussed Return if you experience any or worsening symptoms Follow-up with your primary doctor Prescriptions: New lisinopril 20 mg tablet 20 mg PO BID Qty: 60 0RF hydrochlorothiazide 12.5 mg tablet 12.5 mg PO DAILY Qty: 30 0RF amlodipine 10 mg tablet 10 mg PO DAILY Qty: 30 0RF clonidine HCl 0.1 mg tablet 0.05 mg PO BID Qty: 30 0RF No Action clonidine HCl 0.1 mg Tablet 0.05 mg PO BID@1500,2100 30 Days Qty: 60 0RF Protocol: Hold for SBP< HOLD for SBP < : 90 naltrexone 50 mg Tablet 50 mg PO DAILY 30 Days Qty: 30 0RF tetrahydrozoline [Eye Drops (tetrahydrozoline)] 0.05 % Drops 1 drp ophthalmic (eye) QID PRN (Reason: Dry Eyes) 30 Days Qty: 30 0RF amlodipine 10 mg Tablet 10 mg PO BEDTIME 30 Days Qty: 30 0RF Protocol: Hold for SBP< HOLD for SBP < : 90 fluoxetine 20 mg Capsule 40 mg PO DAILY 30 Days Qty: 60 0RF fluticasone propionate 50 mcg/actuation [place],Suspension 1 spray intranasal BID PRN (Reason: nasal/sinus congestion) 30 Days Qty: 1 0RF hydrochlorothiazide 12.5 mg Tablet 12.5 mg PO DAILY 30 Days Qty: 30 0RF Protocol: Hold for SBP< HOLD for SBP < : 90 Biktarvy 50-200-25 mg Tablet 1 tab PO DAILY 30 Days Qty: 30 0RF multivitamin [Daily-Lauren] Tablet 1 tab PO DAILY 30 Days Qty: 30 0RF lisinopril 20 mg Tablet 20 mg PO BID 30 Days Qty: 60 0RF trazodone 100 mg Tablet 150 mg PO BEDTIME 30 Days Qty: 45 0RF Interventions: ED Discharge Assessment Last Done: 06/22/23 11:19 Print Language: Occitan
[2023-06-22 11:19] VITALS: BP 184/88; PULSE 62; RESP 16; TEMP 36.7; O2SAT 98
== END 2023-06-22 11:20 | disposition home or self-care (01) ==
PROVIDERS: Emergency Provider Emergency Medicine
DX: I10 Essential (primary) hypertension (principal); Z76.0 Encounter for issue of repeat prescription
CPT/HCPCS: 99282; 99283

== ENCOUNTER 2023-07-20 11:15 | Outpatient (RCR) | payer MEDICARE, MEDICAID, SELFPAY ==
[2023-07-14 13:21] VITALS: BMI 27.2
[2023-07-14 13:24] VITALS: BP 131/76; PULSE 63; TEMP 36.6
[2023-07-14 16:00] LABS: Amphetamine Screen Urine Not Detected (Not Detect); Barbiturates, Urine Not Detected (Not Detect); Benzodiazepines Screen Urine Not Detected (Not Detect); Buprenorphine Scr Not Detected (Not Detect); Cannabinoid Screen Urine Not Detected (Not Detect); Cocaine Screen Urine Not Detected (Not Detect); Fentanyl, urine Not Detected (Not Detect); Methadone Screen, Urine Not Detected (Not Detect); Opiate Screen Urine Not Detected (Not Detect); Oxycodone Screen Urine Not Detected (Not Detect); Phencyclidine Screen Urine Not Detected (Not Detect)
--- NOTE | 2023-07-15 16:47 | HO.PHP ---
Client's case has been opened and reviewed in team.
--- NOTE | 2023-07-19 14:59 | HO.PHP ---
Monalisa was not scheduled for today due to having a conflict in her schedule of another appointment.
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
--- NOTE | 2023-07-21 15:54 | HO.PHP ---
Monalisa was not scheduled today due to having a doctor's appointment.
--- NOTE | 2023-07-22 16:25 | HO.PHP ---
At roughly 9:20 senior underwriter called pt since she did not show up for programming. Pt reported she will not be able to return because she will not have transportation, today makes 3 days missed from [facility] out of 7. Pt informed she can return when her transportation is resolved. Stated she felt the program has been helpful. Reported she felt safe and has OP services in place with upcoming appts, including a new PCP she saw yesterday. Pt appreciative for PHP support. Pt will be adminstratively discharged from [facility] today.
== END 2023-07-20 23:59 | disposition home or self-care (01) ==
LOC: HO.PHPA 11:15
PROVIDERS: Visit Provider Psychiatry & Neurology Psychiatry
DX: F31.70 Bipolar disorder, currently in remission, most recent episode unspecified (principal); F10.24 Alcohol dependence with alcohol-induced mood disorder; F43.12 Post-traumatic stress disorder, chronic; F12.90 Cannabis use, unspecified, uncomplicated; F14.11 Cocaine abuse, in remission
CPT/HCPCS: 80307; 90791; 90853

== ENCOUNTER → 2023-07-20 11:15 | Outpatient (BNV) | payer MEDICARE, MEDICAID, SELFPAY | PROVIDERS: Visit Provider Psychiatry & Neurology Psychiatry | DX: F10.24 Alcohol dependence with alcohol-induced mood disorder (principal); F31.70 Bipolar disorder, currently in remission, most recent episode unspecified; F43.12 Post-traumatic stress disorder, chronic; F19.10 Other psychoactive substance abuse, uncomplicated | CPT/HCPCS: 90792 ==

== ENCOUNTER 2023-07-21 17:31 | Outpatient (REF) | payer MEDICARE, MEDICAID, SELFPAY ==
[2023-07-22 11:33] LABS: Bacterial Vaginosis PCR NEGATIVE (Negative); Candida Group PCR NOT DETECTED (Not Detect); Candida glab krusei PCR NOT DETECTED (Not Detect); Trichomonas vaginalis PCR NOT DETECTED (Not Detect)
== END 2023-07-21 17:32 | disposition home or self-care (01) ==
LOC: HO.HHCLNP 17:31
PROVIDERS: Visit Provider Student in an Organized Health Care Education/Training Program
DX: Z13.89 Encounter for screening for other disorder (principal)
CPT/HCPCS: 0352U

== ENCOUNTER 2023-08-04 08:13 | Outpatient (REF) | payer MEDICARE, MEDICAID, SELFPAY ==
--- NOTE | ~2023-08-04 | MM_ITS ---
EXAMINATION: BONE DENSITOMETRY CLINICAL INDICATION: Asymptomatic menopausal state. COMPARISON: This is the patient's baseline examination. TECHNIQUE: Using a [employer] DXA System (software version: 13.1) manufactured by [employer], dual-energy x-ray absorptiometry was performed of the lumbar spine and left hip. The images are of good technical quality. Summary results are attached. FINDINGS: LEFT FEMUR, NECK: BMD 0.978 g/cm2, Z-score 0.5, T-score -0.4, normal. LEFT FEMUR, TOTAL: BMD 1.051 g/cm2, Z-score 0.9, T-score 0.3, normal. AP SPINE L1-L4: BMD 1.020 g/cm2, Z-score -0.6, T-score -1.3, osteopenia. IDENTIFIED RISK FACTORS: Menopause, thiazide, alcohol. HISTORY OF FRACTURE: None listed. MEDICATIONS: Multivitamin. MM/XR DEXA axial skeleton IMPRESSION: 1. DIAGNOSIS: Osteopenia based on the lowest T-score value of -1.3 in the lumbar spine applying World Health Organization criteria. 2. 10-YEAR FRACTURE RISK PREDICTION, FRAX: Major osteoporotic fracture (clinical spine, forearm, hip or shoulder) 8.3%. Hip fracture 0.4%. 3. Treatment Recommendations: NOF guidelines recommend consideration for treatment in postmenopausal women and men age 50 and older presenting with the following: -A hip or vertebral (clinical or morphometric) fracture. -T-score less than or equal to -2.5 at the femoral neck or spine after appropriate evaluation to exclude secondary causes. -Low bone mass at the hip or spine and a 10-year fracture probability by FRAX of greater than or equal to 3% for hip fracture or greater than or equal to 20% for major osteoporotic fracture based on the [place] adapted WHO algorithm. 4. Other Recommendations: All treatment decisions require clinical judgment and consideration of individual patient factors, including patient preferences, comorbidities, previous drug use, risk factors not captured in the FRAX model (e.g. frailty, falls, vitamin D deficiency, increased bone turnover, interval significant decline in bone density) and possible under or overestimation of fracture risk by FRAX. Additional medical evaluation for secondary cause of low bone mineral density may be appropriate. FUTURE SCAN RECOMMENDATION: People with diagnosed cases of osteoporosis or at high risk for fracture should have regular bone mineral density tests. For patients eligible for Medicare, routine testing is allowed once every 2 years. The testing frequency can be increased to one year for patients who have rapidly progressing disease, those who are receiving or discontinuing medical therapy to restore bone mass, or have additional risk factors.
== END 2023-08-04 08:14 | disposition home or self-care (01) ==
LOC: HO.MAMMO 08:13
PROVIDERS: PCP Student in an Organized Health Care Education/Training Program; Visit Provider Student in an Organized Health Care Education/Training Program
DX: Z12.31 Encounter for screening mammogram for malignant neoplasm of breast (principal); Z13.820 Encounter for screening for osteoporosis; Z78.0 Asymptomatic menopausal state; Z21 Asymptomatic human immunodeficiency virus [HIV] infection status
CPT/HCPCS: 77063; 77067; 77080

== ENCOUNTER → 2023-08-04 08:15 | Outpatient (BNV) | payer MEDICARE, MEDICAID, SELFPAY | PROVIDERS: PCP Student in an Organized Health Care Education/Training Program; Visit Provider Radiology Diagnostic Radiology | DX: Z12.31 Encounter for screening mammogram for malignant neoplasm of breast (principal) | CPT/HCPCS: 77063; 77067 ==